=== PATIENT | male | born 1960 | race American Indian/Alaskan Native ===

== ENCOUNTER 2017-01-04 13:02 | Inpatient (IN) | payer MEDICARE, OTHER ==
[2017-01-04 13:06] VITALS: BMI 25.8
--- NOTE | 2017-01-04 15:05 | ED PDOC ---
HPI: General Adult Time Seen by Provider: 01/04/17 13:32 Chief Complaint (Nursing): Abnormal Skin Integrity Chief Complaint (Provider): found on ground, infestation History Per: Patient, EMS History/Exam Limitations: clinical condition Onset/Duration Of Symptoms: Unknown Current Symptoms Are (Timing): Still Present Recently: Hospitalized [place] [place] pt) Additional Complaint(s): 56yo male arrives EMS found on ground on street infested with maggots, covered in feces. Pt poor historian. C/o leg pains, ulcers and weakness. Required extensive decontamination in ED. History limited by need for decontamination on arrival. Prior charts reviewed briefly, recent ED visits for intoxication to . Past Medical History Reviewed: Historical Data, Nursing Documentation, Vital Signs Vital Signs: Last Vital Signs Temp 99.8 F H 01/04/17 13:36 Pulse 136 H 01/04/17 13:36 Resp 18 01/04/17 13:36 BP 138/80 01/04/17 13:36 Pulse Ox - Medical History PMH: Asthma, Back Problems, Depression, Fractures (spine fracture 2002), Gastritis, HTN, Hypercholesterolemia, Chronic Pain Denies: Chronic Kidney Disease - Surgical History Surgical History: Back Surgery - Family History Family History: States: Unknown Family Hx - Living Arrangements Living Arrangements: Other (homeless) - Social History Current smoker - smoking cessation education provided: Yes Alcohol: > 2 Drinks/Day - Immunization History Hx Tetanus Toxoid Vaccination: No Hx Influenza Vaccination: No Hx Pneumococcal Vaccination: No - Home Medications Home Medications: Ambulatory Orders Medication Instructions Recorded Unobtainable 09/14/16 - Allergies Allergies/Adverse Reactions: Allergies Allergy/AdvReac Type Severity Reaction Status Date / Time No Known Allergies Allergy Verified 12/21/16 21:12 Review of Systems Review Of Systems: ROS cannot be obtained secondary to pt's inabilty to answer questions. (poor historian) Physical Exam - Reviewed Nursing Documentation Reviewed: Yes Vital Signs Reviewed: Yes - Physical Exam Appears: Positive for: Non-toxic (poor hygiene) Head Exam: Positive for: ATRAUMATIC, NORMAL INSPECTION, NORMOCEPHALIC Skin: Positive for: Warm, Rash (extensive ulcerations to buttocks and lower extremities, maggots infested into ulcers on buttocks and legs; neg nikolskys sign. scrotum mild tenderness; +erythema and ulcerations to distal legs) Eye Exam: Positive for: EOMI, Normal appearance, PERRL ENT: Positive for: Normal ENT Inspection Neck: Positive for: Normal, Painless ROM Cardiovascular/Chest: Positive for: Bradycardia Respiratory: Negative for: Respiratory Distress Gastrointestinal/Abdominal: Positive for: Normal Exam, Bowel Sounds, Soft Male Genital Exam: Positive for: normal genitalia, scrotum tenderness (R), scrotum tenderness (L) Back: Positive for: Normal Inspection Extremity: Positive for: Swelling (LE edema), Other (acute on chronic appearing ulcers b/l LE; ) Neurologic/Psych: Positive for: Alert, Oriented, Gait (unable to assess). Negative for: Motor/Sensory Deficits Medical Decision Making Medical Decision Making: Decontamination initiated in ED. Wounds irrigated to remove maggots, debris. Sterile saline and betadine wash thereafter under pressure. Workup for sepsis initiated. Disposition - Clinical Impression Clinical Impression: Cellulitis and abscess of buttock, Maggot infestation, Ulcers of both lower legs - Patient ED Disposition Is Patient to be Admitted: Transfer of Care - Disposition Disposition: Transfer of Care Disposition Time: 15:09 Condition: GUARDED Patient Signed Over To: Christina Pedraza Handoff Comments: pending workup and dispo, likely admission. r/o sepsis
[2017-01-04] MEDS ORDERED: Sodium Chloride 0.9% 1,000 ML IV STA (15:10)
[2017-01-04 16:18] LABS: VENOUS BLOOD GAS BASE EXCESS 3.8 mmol/L (0.0-2.0); VENOUS BLOOD GAS PCO2 46 mmHg (40-60); VENOUS BLOOD PH 7.41 (7.32-7.43)
[2017-01-04] MEDS ORDERED: Piperacillin/Tazobact 4.5 GM in Sodium Chloride 0.9% 100 ML IVPB STA (16:19)
--- NOTE | 2017-01-04 16:19 | ED PDOC ---
- Laboratory Results Result Diagrams: 01/09/17 05:35 01/09/17 05:35 Medical Decision Making Medical Decision Making: Patient signed over to me pending work up and disposition Scribe Attestation: Documented by Yeimi Barksdale acting as a scribe for Christina Pedraza MD MD Scribe Attestation: All medical record entries made by the Scribe were at my direction and personally dictated by me. I have reviewed the chart and agree that the record accurately reflects my personal performance of the history, physical exam, medical decision making, and the department course for this patient. I have also personally directed, reviewed, and agree with the discharge instructions and disposition. Disposition - Clinical Impression Clinical Impression: Cellulitis and abscess of buttock, Maggot infestation, Ulcers of both lower legs - POA Present On Arrival: Pressure Ulcer - Disposition Disposition: Admitted as In-Patient Disposition Time: 18:01 Condition: GUARDED
[2017-01-04 16:45] LABS: PARTIAL THROMBOPLASTIN TIME 33.1 SECONDS (23.3-32.5)
[2017-01-04 16:49] LABS: ALB/GLOB RATIO 0.8 (1.0-2.1); ALCOHOL SERUM 67 mg/dl (0-10); ALKALINE PHOSPHATASE 67 U/L (38-126); ALT/SGPT 45 U/L (21-72); AST/SGOT 90 U/L (17-59); BILIRUBIN,TOTAL 1.9 mg/dl (0.2-1.3); BLOOD UREA NITROGEN 14 mg/dl (9-20); CALCIUM 9.4 mg/dL (8.4-10.2); CARBON DIOXIDE 26 mmol/L (22-30); CHLORIDE 88 mmol/L (98-107); GFR AFRICAN-AMERICAN > 60; GLUCOSE,RANDOM 112 mg/dL (75-110); SODIUM 129 mmol/l (132-148); TOTAL PROTEIN 9.3 G/DL (6.3-8.2)
[2017-01-04 16:54] LABS: BASO % 0.3 % (0.0-2.0); EOS % 0.3 % (0.0-4.0); HEMATOCRIT 37.5 % (35.0-51.0); LYMPH # 0.9 K/uL (1.0-4.3); LYMPH % 7.6 % (20.0-40.0); MEAN CELL VOLUME 89.8 fl (80.0-94.0); MEAN CORPUSCULAR HGB CONC 32.2 g/dL (33.0-37.0); MEAN PLATELET VOLUME 7.2 fl (7.2-11.7); MONO # 1.5 K/uL (0.0-0.8); MONO % 13.4 % (0.0-10.0); NEUT % 78.4 % (50.0-75.0); NRBC % 0.1 % (0.0-0.0); PLATELET COUNT 258 K/uL (130-400); RED CELL DISTRIBUTION WIDTH 16.2 % (11.5-14.5); WHITE BLOOD COUNT 11.4 K/uL (4.8-10.8)
[2017-01-04 17:00] LABS: POTASSIUM 5.1 MMOL/L (3.6-5.0)
[2017-01-04] MEDS ORDERED: Hydrogen Peroxide 3% Soln (480ml) TP ONE (17:07)
--- NOTE | 2017-01-04 17:50 | CP.PCM.CON ---
History of Present Illness - History of Present Illness History of Present Illness: PODIATRY CONSULT NOTE 56 year old male patient seen in [facility] concerning bilateral lower extremity cellulits and maggot infestation. Pt is homeless and was brought in. Pt reports he was seen at [facility] 2 week prior concerning this same issue. Pt reports he was seen in urgent care setting and had received "multiple medications", pt did not follow up with any providers. Pt reports worsening symptoms and extent of cellulitis which initially was localized to left lower leg. Pt states he has had recurrent bouts of cellulitis over the past year. Pt reports pain he currently grades a 5/10 bilaterally, to area of erythema. Pt reports feeling of feverishness and is visible shivering and reports he has chills. Pt denies recent n/v/cp/sob. PMD: none PMH: Poor historian PSH: Poor historian All: NKDA Family Hx: Spotty Social Hx: Homeless for <1 week allegedly, sister in [place], unemployed. Admits to chronic alcohol daily ue of 1 [address] Denies [address] drug use, or tobacco use. Past Patient History - Infectious Disease Hx of Infectious Diseases: None - Past Medical History & Family History Past Medical History?: Yes - Past Social History Alcohol: > 2 Drinks/Day - CARDIAC Hx Hypercholesterolemia: Yes Hx Hypertension: Yes - PULMONARY Hx Asthma: Yes - HEENT Hx HEENT Problems: No - RENAL Hx Chronic Kidney Disease: No - INTEGUMENTARY Hx Dermatological Problems: Yes Other/Comment: cellulitis b/l legs. wound to lt foot - MUSCULOSKELETAL/RHEUMATOLOGICAL Hx Fractures: Yes (spine fracture 2002) - GASTROINTESTINAL Hx Gastritis: Yes - PSYCHIATRIC Hx Depression: Yes - SURGICAL HISTORY Hx Surgeries: Yes - ANESTHESIA Hx Anesthesia: Yes Hx Anesthesia Reactions: No Hx Malignant Hyperthermia: No Meds Allergies/Adverse Reactions: Allergies Allergy/AdvReac Type Severity Reaction Status Date / Time No Known Allergies Allergy Verified 12/21/16 21:12 - Medications Medications: Current Medications Vancomycin HCl 1 gm/ Sodium (Chloride) 250 mls @ 166.667 mls/hr IVPB STAT STA Stop: 01/04/17 17:48 Physical Exam - Constitutional Appears: Toxic, No Acute Distress, Unkempt - Head Exam Head Exam: ATRAUMATIC, NORMOCEPHALIC - Extremities Exam Additional comments: Lower extremity exam: VASC- DP/PT pulses fully palpable, graded 2/4, capillary refill < 5 sec to digits x 5, moderate non-pitting edema noted extending circumferentialy from level digits to inferior of tibial tuberosity bilaterally. Temperature runs warm throughout bilateral feet and legs. Moderate diffuse non-blanchable erythema. NEURO-Pedal sensation is grossly intact DERM- Interdigtial macerations noted to all interspaces. Plantar digital skin and skin of weightbearing areas is blanched and mildly macerated bilaterally. No fluctuance noted bilaterally. Right- Lateral foot superficial ulceration measuring 9 x 1cm with 100% granular base, absent hyperkeratotic margins, no undermining, no active drainage. Arianne-wound skin s fully epithelialized though not fully pigmented. Posterior leg superficial ulceration measuring 2.2 x 3.4cm with 100% granular base, absent hyperkeratotic margins, no undermining, no active drainage. Arianne-wound skin s fully epithelialized though not fully pigmented. Left - Posterior Leg superficial ulceration measuring 7 x 12 cm with 100% granular base, absent hyperkeratotic margins, no undermining, no active drainage. Arianne-wound skin s fully epithelialized though not fully pigmented. ORTHO- Mild tenderness noted to distal posterior and lateral legs today. Pedal muscle strength of left leg 4 major pedal muscle groups is 5/5. Right leg demonstrates 4/5 strength for anterior, lateral, and medial muscle groups, with decreased muscle strength exhibited from hip flexor, extensors and abductors - Neurological Exam Neurological exam: Alert, Oriented x3 - Psychiatric Exam Psychiatric exam: Normal Affect, Normal Mood Results - Vital Signs Recent Vital Signs: Last Vital Signs Temp 99.9 F H 01/04/17 16:55 Pulse 130 H 01/04/17 16:55 Resp 18 01/04/17 16:55 BP 118/71 01/04/17 16:55 Pulse Ox 98 01/04/17 16:55 - Labs Result Diagrams: 01/04/17 16:25 01/04/17 16:25 Labs: Laboratory Results - last 24 hr 01/04/17 01/04/17 01/04/17 16:10 16:25 16:25 WBC 11.4 H D RBC 4.18 L Hgb 12.1 Hct 37.5 MCV 89.8 MCH 29.0 MCHC 32.2 L RDW 16.2 H Plt Count 258 MPV 7.2 Neut % (Auto) 78.4 H Lymph % (Auto) 7.6 L Milam % (Auto) 13.4 H Eos % (Auto) 0.3 Baso % (Auto) 0.3 Neut # 9.0 H Lymph # 0.9 L Milam # 1.5 H Eos # 0.0 Baso # 0.0 PT INR APTT pO2 22 L VBG pH 7.41 VBG pCO2 46 VBG HCO3 26.3 VBG Total CO2 30.6 H VBG O2 Sat (Calc) 32.8 L VBG Base Excess 3.8 H VBG Potassium 4.3 Sodium 127.0 L 129 L Chloride 90.0 L 88 L Glucose 100 Lactate 4.6 H* FiO2 21.0 Crit Value Called To Dr leroy medellin Crit Value Called By Rt Crit Value Read Back Y Blood Gas Notified Time 1617 Potassium 5.1 H Carbon Dioxide 26 Anion Gap 20 BUN 14 Creatinine 0.6 L Est GFR ( Amer) > 60 Est GFR (Non-Af Amer) > 60 Random Glucose 112 H Calcium 9.4 Total Bilirubin 1.9 H AST 90 H D ALT 45 Alkaline Phosphatase 67 Total Creatine Kinase 1337 H Troponin I < 0.0120 Total Protein 9.3 H Albumin 4.1 Globulin 5.3 H Albumin/Globulin Ratio 0.8 L Venous Blood Potassium 4.3 Alcohol, Quantitative 67 H 01/04/17 16:25 WBC RBC Hgb Hct MCV MCH MCHC RDW Plt Count MPV Neut % (Auto) Lymph % (Auto) Milam % (Auto) Eos % (Auto) Baso % (Auto) Neut # Lymph # Milam # Eos # Baso # PT 12.0 H INR 1.15 H APTT 33.1 H pO2 VBG pH VBG pCO2 VBG HCO3 VBG Total CO2 VBG O2 Sat (Calc) VBG Base Excess VBG Potassium Sodium Chloride Glucose Lactate FiO2 Crit Value Called To Crit Value Called By Crit Value Read Back Blood Gas Notified Time Potassium Carbon Dioxide Anion Gap BUN Creatinine Est GFR ( Amer) Est GFR (Non-Af Amer) Random Glucose Calcium Total Bilirubin AST ALT Alkaline Phosphatase Total Creatine Kinase Troponin I Total Protein Albumin Globulin Albumin/Globulin Ratio Venous Blood Potassium Alcohol, Quantitative Assessment & Plan - Assessment and Plan (Free Text) Assessment: 56 year old male with bilateral foot and leg cellulits, multiple bilateral Rico Grade 1 Ulcerations,w/ maggot colonization/infestation. Plan: Pt evaluated & treated. Charts labs and vitals reviewed. WBC=, afebrile Discussed with attending Dr. West. -Bilateral leg wound cultures taken of lower extremity. -ESR ordered -Below knee x-ray films ordered. -Venous duplex results reviewed: Negative for DVT -Cleansed lower extremity with hydrogen peroxide & sterile saline, dressed with Xeroform gauze, abd, & dsd. Pt to be admitted. Podiatry will follow while inhouse. - Date & Time Date: 01/04/17 Time: 05:20
--- NOTE | 2017-01-04 18:11 | US ---
PROCEDURE: Bilateral lower extremity venous duplex Doppler. HISTORY: BLE edema COMPARISON: None available. TECHNIQUE: Bilateral common femoral, superficial femoral, popliteal and posterior tibial veins were evaluated. Flow was assessed with color Doppler, compressibility, assessment of phasic flow and augmentation response. FINDINGS: COMMON FEMORAL VEIN: Right CFV: Unremarkable. Left CFV: Unremarkable. SUPERFICIAL FEMORAL VEIN: Right SFV: Unremarkable. Left SFV: Unremarkable. POPLITEAL VEIN: Right Popliteal: Unremarkable. Left Popliteal: Unremarkable. POSTERIOR TIBIAL VEIN: Right PTV: Unremarkable. Left PTV: Unremarkable. OTHER FINDINGS: None. IMPRESSION: No evidence of deep venous thrombosis.
[2017-01-04 18:22] LABS: RBC URINE 3 /hpf (0-3); URINE BACTERIA RARE (<OCC); URINE BILIRUBIN NEGATIVE (NEGATIVE); URINE BLOOD MODERATE (NEGATIVE); URINE COLOR AMBER (YELLOW); URINE GLUCOSE (UA) NEG (Normal); URINE KETONE TRACE mg/dL (NEGATIVE); URINE LEUKOCYTE ESTERASE NEG Leu/uL (Negative); URINE PROTEIN 100 mg/dL (NEGATIVE); WBC URINE 6 /hpf (0-5)
--- NOTE | 2017-01-04 18:22 | RAD ---
HISTORY: SOB COMPARISON: None available TECHNIQUE: Chest, one view. FINDINGS: LUNGS: Right lower lobe opacity compatible with pleural effusion and associated consolidation. No definite pneumothorax. Please note that chest x-ray has limited sensitivity for the detection of pulmonary masses. CARDIOVASCULAR: Heart size appears within normal limits. Ectatic aorta. OSSEOUS STRUCTURES: No acute osseous abnormality is detected. VISUALIZED UPPER ABDOMEN: Unremarkable. OTHER FINDINGS: None. IMPRESSION: Right lower lobe opacity compatible with small pleural effusion and associated consolidation.
[2017-01-04] MEDS ORDERED: Povidone Iodine Topical 10% Sol ONE (19:17)
[2017-01-04 19:47] LABS: VENOUS BLOOD GAS BASE EXCESS 2.1 mmol/L (0.0-2.0); VENOUS BLOOD GAS PCO2 35 mmHg (40-60); VENOUS BLOOD PH 7.47 (7.32-7.43)
[2017-01-04 20:17] LABS: NEUTROPHIL 76 % (42-75); TOTAL CELLS COUNTED 100
[2017-01-04 20:18] LABS: LARGE PLATELETS PRESENT
[2017-01-04 20:32] LABS: ALKALINE PHOSPHATASE 55 U/L (38-126); ALT/SGPT 45 U/L (21-72); AST/SGOT 72 U/L (17-59); BILIRUBIN,TOTAL 1.7 mg/dl (0.2-1.3); BLOOD UREA NITROGEN 13 mg/dl (9-20); CALCIUM 8.5 mg/dL (8.4-10.2); CARBON DIOXIDE 25 mmol/L (22-30); CHLORIDE 93 mmol/L (98-107); GFR AFRICAN-AMERICAN > 60; GLUCOSE,RANDOM 110 mg/dL (75-110); SODIUM 130 mmol/l (132-148); TOTAL PROTEIN 7.2 G/DL (6.3-8.2)
[2017-01-04 20:42] LABS: ALB/GLOB RATIO 0.8 (1.0-2.1)
[2017-01-04] MEDS ORDERED: Sodium Chloride 0.9% 1,000 ML IV SCH (23:15)
[2017-01-05] MEDS: Sodium Chloride 0.9% 1,000 ML IV SCH ×3 (00:38→15:08)
[2017-01-05] MEDS: Piperacillin/Tazobact 3.375 GM in Sodium Chloride 0.9% 100 ML IVPB SCH ×5 (00:38→22:23)
[2017-01-05 07:24] LABS: BASO % 0.4 % (0.0-2.0); EOS % 0.3 % (0.0-4.0); HEMATOCRIT 29.4 % (35.0-51.0); LYMPH # 0.7 K/uL (1.0-4.3); LYMPH % 8.2 % (20.0-40.0); MEAN CELL VOLUME 89.7 fl (80.0-94.0); MEAN CORPUSCULAR HEMOGLOBIN 29.2 pg (27.0-31.0); MEAN CORPUSCULAR HGB CONC 32.5 g/dL (33.0-37.0); MEAN PLATELET VOLUME 6.8 fl (7.2-11.7); MONO # 1.4 K/uL (0.0-0.8); MONO % 17.1 % (0.0-10.0); PLATELET COUNT 242 K/uL (130-400); RED CELL DISTRIBUTION WIDTH 16.4 % (11.5-14.5); WHITE BLOOD COUNT 8.2 K/uL (4.8-10.8)
--- NOTE | 2017-01-05 07:25 | CP.PCM.HP ---
History of Present Illness - History of Present Illness History of Present Illness: dpt admitted fo rinfected leg and sacral wounds. pt is homeless nad found to have maggots in wounds. pt has been doconned but insects remain. pt states has not been taking care of himself and when he gets up set he drinks. all bw noted incl elevated lactate. lactate, hr and temp came down w/ tylenol and fluids. consults appriciated. bw and imaign gnoted. Present on Admission - Present on Admission Any Indicators Present on Admission: No Review of Systems - Integumentary Integumentary: As Per HPI, Skin Ulcer Past Patient History - Infectious Disease Hx of Infectious Diseases: None - Past Medical History & Family History Past Medical History?: Yes - Past Social History Alcohol: > 2 Drinks/Day - CARDIAC Hx Hypercholesterolemia: Yes Hx Hypertension: Yes - PULMONARY Hx Asthma: Yes - HEENT Hx HEENT Problems: No - RENAL Hx Chronic Kidney Disease: No - INTEGUMENTARY Hx Dermatological Problems: Yes - MUSCULOSKELETAL/RHEUMATOLOGICAL Hx Fractures: Yes (spine fracture 2002) - GASTROINTESTINAL Hx Gastritis: Yes - PSYCHIATRIC Hx Depression: Yes - SURGICAL HISTORY Hx Surgeries: Yes - ANESTHESIA Hx Anesthesia: Yes Hx Anesthesia Reactions: No Hx Malignant Hyperthermia: No Meds Allergies/Adverse Reactions: Allergies Allergy/AdvReac Type Severity Reaction Status Date / Time No Known Allergies Allergy Verified 12/21/16 21:12 Physical Exam - Constitutional Appears: Well, Non-toxic, No Acute Distress - Head Exam Head Exam: ATRAUMATIC, NORMAL INSPECTION, NORMOCEPHALIC - Eye Exam Eye Exam: EOMI, Normal appearance, PERRL Pupil Exam: NORMAL ACCOMODATION, PERRL - ENT Exam ENT Exam: Mucous Membranes Moist, Normal Exam - Neck Exam Neck exam: Positive for: Normal Inspection - Respiratory Exam Respiratory Exam: Clear to Auscultation Bilateral, NORMAL BREATHING PATTERN - Cardiovascular Exam Cardiovascular Exam: REGULAR RHYTHM, RRR, +S1, +S2 - GI/Abdominal Exam GI & Abdominal Exam: Normal Bowel Sounds, Soft. absent: Tenderness - Extremities Exam Extremities exam: Positive for: full ROM, normal capillary refill, normal inspection, pedal pulses present - Back Exam Back exam: NORMAL INSPECTION - Neurological Exam Neurological exam: Alert, CN II-XII Intact, Normal Gait, Oriented x3, Reflexes Normal - Psychiatric Exam Psychiatric exam: Normal Affect, Normal Mood - Skin Skin Exam: Dry, Intact, Normal Color, Warm Additional comments: wounds to ble and sacrum. podiatry and wound nurse on case Results - Vital Signs Recent Vital Signs: Last Vital Signs Temp 99.6 F 01/05/17 05:39 Pulse 107 H 01/05/17 05:39 Resp 18 01/05/17 05:39 BP 135/78 01/05/17 05:39 Pulse Ox 100 01/05/17 05:39 - Labs Result Diagrams: 01/05/17 06:50 01/05/17 06:50 Labs: Laboratory Results - last 24 hr 01/04/17 01/04/17 01/04/17 19:40 19:42 20:00 ESR 100 H pO2 43 VBG pH 7.47 H VBG pCO2 35 L VBG HCO3 26.2 VBG Total CO2 26.6 VBG O2 Sat (Calc) 83.8 H VBG Base Excess 2.1 H VBG Potassium 9.5 H* Sodium 125.0 L 130 L Chloride 98.0 93 L Glucose 92 Lactate 1.8 FiO2 21.0 Crit Value Called To Dr leroy medellin Crit Value Called By Rt Crit Value Read Back Y Blood Gas Notified Time 1944 Potassium 4.0 Carbon Dioxide 25 Anion Gap 16 BUN 13 Creatinine 0.7 L Est GFR ( Amer) > 60 Est GFR (Non-Af Amer) > 60 Random Glucose 110 Calcium 8.5 Total Bilirubin 1.7 H AST 72 H ALT 45 Alkaline Phosphatase 55 Total Protein 7.2 Albumin 3.3 L Globulin 3.9 Albumin/Globulin Ratio 0.8 L Venous Blood Potassium 9.5 H* Decision To Admit - Pt Status Changed To: Hospital Disposition Of: Inpatient - Admit Certification Admit to Inpatient:: After my assessment, the patient will require hospitalization for at least two midnights. This is because of the severity of symptoms shown, intensity of services needed, and/or the medical risk in this patient being treated as an outpatient. - . Bed Request Type: Telemetry Admitting Physician: Chandrakant Snyder
[2017-01-05 07:35] LABS: ALB/GLOB RATIO 0.8 (1.0-2.1); ALKALINE PHOSPHATASE 52 U/L (38-126); ALT/SGPT 42 U/L (21-72); AST/SGOT 78 U/L (17-59); BLOOD UREA NITROGEN 11 mg/dl (9-20); CALCIUM 8.3 mg/dL (8.4-10.2); CARBON DIOXIDE 30 mmol/L (22-30); CHLORIDE 94 mmol/L (98-107); GFR AFRICAN-AMERICAN > 60; GLUCOSE,RANDOM 97 mg/dL (75-110); POTASSIUM 3.7 MMOL/L (3.6-5.0); SODIUM 132 mmol/l (132-148); TOTAL PROTEIN 6.6 G/DL (6.3-8.2)
--- NOTE | 2017-01-05 08:46 | CARD ---
APPROVED REPORT EKG Measurement Heart [id number] <Conclusion> Sinus tachycardia Otherwise normal ECG
[2017-01-05 09:10] LABS: NEUTROPHIL 74 % (42-75); TOTAL CELLS COUNTED 100
[2017-01-05 09:12] LABS: LARGE PLATELETS PRESENT
[2017-01-05] MEDS ORDERED: Hydrogen Peroxide 3% Soln (480ml) TP ONE (10:53)
--- NOTE | 2017-01-05 10:55 | RAD ---
PROCEDURE: Radiographs of the bilateral Tibiae and Fibulae. HISTORY: Ulcerations COMPARISON: None available. TECHNIQUE: Frontal and lateral views obtained. FINDINGS: BONES: RIGHT : Osseous demineralization. No acute displaced fracture. LEFT : Osseous demineralization. No acute displaced fracture. 13 mm peripherally sclerotic lesion within the mid fibula. JOINT SPACES: RIGHT : No dislocation. LEFT : No dislocation. SOFT TISSUES: RIGHT : Soft tissue edema. No evidence of radiopaque foreign body. Vascular calcifications. LEFT : Soft tissue edema. No evidence of radiopaque foreign body. Vascular calcifications. OTHER FINDINGS: None. IMPRESSION: Bilateral soft tissue edema. No acute displaced fracture or dislocation evident. 13 mm peripherally sclerotic lucent lesion within the mid left tibia fibula.
[2017-01-05] MEDS: Enoxaparin 40 mg Syringe SC SCH (11:09)
--- NOTE | 2017-01-05 12:05 | RAD ---
Bilateral ankle radiographs Indication: Ulcerations Comparison: None available Findings: Right ankle: Osseous demineralization limits evaluation for acute fracture lines. No acute displaced fracture or dislocation identified. Soft tissue swelling. Vascular calcifications. No evidence of radiopaque foreign body. Left ankle: Osseous demineralization limits evaluation for acute fracture lines. No acute displaced fracture or dislocation identified. Soft tissue swelling. Vascular calcifications. No evidence of radiopaque foreign body. Impression: Bilateral osseous demineralization. Soft tissue swelling.
--- NOTE | 2017-01-05 12:14 | RAD ---
Bilateral feet radiographs Indication: Ulcerations Comparison: None available Findings: Right foot: Osseous demineralization limits evaluation for acute fracture lines. No acute displaced fracture or dislocation identified. Soft tissue swelling. Vascular calcifications. No evidence of radiopaque foreign body. Left foot: Osseous demineralization limits evaluation for acute fracture lines. No acute displaced fracture or dislocation identified. Soft tissue swelling. Vascular calcifications. No evidence of radiopaque foreign body. Impression: Bilateral osseous demineralization. Soft tissue swelling.
[2017-01-05] MEDS: Dakin's Topical 0.25%-Half Strength (480 ml) TOP SCH (12:15)
--- NOTE | 2017-01-05 13:36 | CP.PCM.CON ---
History of Present Illness - History of Present Illness History of Present Illness: 56 year old male patient seen in [facility] concerning bilateral lower extremity cellulits and maggot infestation. Pt is homeless and seen at [facility] 2 week prior concerning this same issue. PMD: none PMH: Poor historian PSH: Poor historian All: NKDA Family Hx: Spotty Social Hx: Homeless for <1 week allegedly, sister in [place], unemployed. Admits to chronic alcohol daily ue of 1 6 pack of beer[address] Denies street drug use, or tobacco use. Review of Systems - Constitutional Constitutional: As Per HPI, Malaise - EENT Eyes: absent: As Per HPI, Blind Spots, Blurred Vision, Change in Vision, Decreased Night Vision, Diplopia, Discharge, Dry Eye, Exophthalmos, Floaters, Irritation, Itchy Eyes, Loss of Peripheral Vision, Pain, Photophobia, Requires Corrective Lenses, Sees Flashes, Spots in Vision, Tunnel Vision, Other Visual Disturbances, Loss of Vision, Other Ears: absent: As Per HPI, Decreased Hearing, Ear Discharge, Ear Pain, Tinnitus, Abnormal Hearing, Disequilibrium, Dizziness, Other Nose/Mouth/Throat: absent: As Per HPI, Epistaxis, Nasal Congestion, Nasal Discharge, Nasal Obstruction, Nasal Trauma, Nose Pain, Post Nasal Drip, Sinus Pain, Sinus Pressure, Bleeding Gums, Change in Voice, Dental Pain, Dry Mouth, Dysphagia, Halitosis, Hoarsness, Lip Swelling, Mouth Lesions, Mouth Pain, Odynophagia, Sore Throat, Throat Swelling, Tongue Swelling, Facial Pain, Neck Pain, Neck Mass, Other - Cardiovascular Cardiovascular: absent: As Per HPI, Acrocyanosis, Chest Pain, Chest Pain at Rest , Chest Pain with Activity, Claudication, Diaphoresis, Dyspnea, Dyspnea on Exertion, Edema, Irregular Heart Rhythm, Pain Radiating to Arm/Neck/Jaw, Leg Edema, Leg Ulcers, Lightheadedness, Orthopnea, Palpitations, Paroxysmal Nocturnal Dyspnea, Pedal Edema, Radiating Pain, Rapid Heart Rate, Slow Heart Rate, Syncope, Other - Respiratory Respiratory: absent: As Per HPI, Cough, Dyspnea, Hemoptysis, Dyspnea on Exertion , Wheezing, Snoring, Stridor, Pain on Inspiration, Chest Congestion, Excessive Mucous Production, Change in Mucous Color, Pain with Coughing, Other - Gastrointestinal Gastrointestinal: absent: As Per HPI, Abdominal Pain, Belching, Bloating, Change in Bowel Habits, Change in Stool Character, Coffee Ground Emesis, Constipation, Cramping, Diarrhea, Dyspepsia, Dysphagia, Early Satiety, Excessive Flatus, Fecal Incontinence, Heartburn, Hematemesis, Hematochezia, Loose Stools, Melena, Nausea, Odynophagia, Temesmus, Vomiting, Other - Genitourinary Genitourinary: absent: As Per HPI, Change in Urinary Stream, Difficulty Urinating, Dysuria, Flank Pain, Hematuria, Pyuria, Nocturia, Urinary Incontinence, Urinary Frequency, Urinary Hesitance, Urinary Urgency, Voiding Freq/Small Amts, Freq UTI, Hx Renal/Bladder Calculi, Hx /Renal Surgery, Bladder Distension, Other - Musculoskeletal Musculoskeletal: As Per HPI - Integumentary Integumentary: As Per HPI - Neurological Neurological: absent: As Per HPI, Abnormal Gait, Abnormal Hearing, Abnormal Movements, Abnormal Speech, Behavioral Changes, Burning Sensations, Confusion, Convulsions, Disequilibrium, Dizziness, Numbness, Focal Weakness, Frequent Falls , Headaches, Lack of Coordination, Loss of Vision, Memory Loss, Paresthesias, Radicular Pain, Restless Legs, Sensory Deficit, Syncope, Tingling, Tremor, Vertigo, Weakness, Other Visual Disturbances, Other - Psychiatric Psychiatric: absent: As Per HPI, Abnormal Sleep Pattern, Anhedonia, Anxiety, Auditory Hallucinations, Behavioral Changes, Change in Appetite, Change in Libido, Confusion, Depression, Difficulty Concentrating, Hallucinations, Homicidal Ideation, Hopelessness, Irritability, Memory Loss, Mood Swings, Panic Attacks, Paranoia, Suicidal Ideation, Visual Hallucinations, Tactile Hallucinations, Other - Endocrine Endocrine: absent: As Per HPI, Change in Body Appearance, Change in Libido, Cold Intolorance, Deepening of Voice, Excessive Sweating, Fatigue, Flushing, Heat Intolorance, Increase in Ring/Shoe/Hat Size, Palpitations, Polydipsia, Polyphagia, Polyuria, Other - Hematologic/Lymphatic Hematologic: absent: As Per HPI, Easy Bleeding, Easy Bruising, Lymphadenopathy, Other Past Patient History - Infectious Disease Hx of Infectious Diseases: None - Past Medical History & Family History Past Medical History?: Yes - Past Social History Alcohol: > 2 Drinks/Day - CARDIAC Hx Hypercholesterolemia: Yes Hx Hypertension: Yes - PULMONARY Hx Asthma: Yes - HEENT Hx HEENT Problems: No - RENAL Hx Chronic Kidney Disease: No - INTEGUMENTARY Hx Dermatological Problems: Yes - MUSCULOSKELETAL/RHEUMATOLOGICAL Hx Fractures: Yes (spine fracture 2002) - GASTROINTESTINAL Hx Gastritis: Yes - PSYCHIATRIC Hx Depression: Yes - SURGICAL HISTORY Hx Surgeries: Yes - ANESTHESIA Hx Anesthesia: Yes Hx Anesthesia Reactions: No Hx Malignant Hyperthermia: No Meds Allergies/Adverse Reactions: Allergies Allergy/AdvReac Type Severity Reaction Status Date / Time No Known Allergies Allergy Verified 12/21/16 21:12 - Medications Medications: Current Medications Acetaminophen (Tylenol 325mg Tab) 650 mg PO Q4 PRN PRN Reason: Fever >100.4 F Enoxaparin Sodium (Lovenox) 40 mg SC DAILY JANNETH PRN Reason: Protocol Last Admin: 01/05/17 11:09 Dose: 40 mg Vancomycin HCl 1 gm/ Sodium (Chloride) 250 mls @ 166.667 mls/hr IVPB Q12 JANNETH Last Admin: 01/05/17 09:32 Dose: 166.667 mls/hr Piperacillin Sod/Tazobactam (Sod 3.375 gm/ Sodium Chloride) 100 mls @ 100 mls/ hr IVPB Q6 JANNETH Last Admin: 01/05/17 09:32 Dose: 100 mls/hr Sodium Chloride (Sodium Chloride 0.9%) 1,000 mls @ 150 mls/hr IV .Q6H40M [facility] Stop: 01/05/17 18:32 Last Admin: 01/05/17 09:31 Dose: 150 mls/hr Ketorolac Tromethamine (Toradol) 30 mg IVP Q6 PRN PRN Reason: Pain, moderate (4-7) Last Admin: 01/05/17 11:09 Dose: 30 mg Sodium Hypochlorite (Dakins Solution 0.25%) 0 ml TOP DAILY [facility] Physical Exam - Constitutional Appears: Non-toxic, Chronically Ill - Head Exam Head Exam: NORMOCEPHALIC - Eye Exam Eye Exam: PERRL. absent: Scleral icterus - ENT Exam ENT Exam: Mucous Membranes Dry, Normal External Ear Exam - Neck Exam Neck exam: Negative for: Lymphadenopathy, Thyromegaly - Respiratory Exam Respiratory Exam: Decreased Breath Sounds, Clear to Auscultation Bilateral - Cardiovascular Exam Cardiovascular Exam: REGULAR RHYTHM, +S1, +S2 - GI/Abdominal Exam GI & Abdominal Exam: Diminished Bowel Sounds, Soft. absent: Guarding, Rebound, Rigid, Tenderness - Rectal Exam Rectal Exam: Deferred - Exam Exam: NORMAL INSPECTION - Extremities Exam Extremities exam: Positive for: pedal edema. Negative for: calf tenderness Additional comments: Lower extremity exam: VASC- DP/PT pulses fully palpable, graded 2/4, capillary refill < 5 sec to digits x 5, moderate non-pitting edema noted extending circumferentialy from level digits to inferior of tibial tuberosity bilaterally. Temperature runs warm throughout bilateral feet and legs. Moderate diffuse non-blanchable erythema. NEURO-Pedal sensation is grossly intact DERM- Interdigtial macerations noted to all interspaces. Plantar digital skin and skin of weightbearing areas is blanched and mildly macerated bilaterally. No fluctuance noted bilaterally. Right- Lateral foot superficial ulceration measuring 9 x 1cm with 100% granular base, absent hyperkeratotic margins, no undermining, no active drainage. Arianne-wound skin s fully epithelialized though not fully pigmented. Posterior leg superficial ulceration measuring 2.2 x 3.4cm with 100% granular base, absent hyperkeratotic margins, no undermining, no active drainage. Arianne-wound skin s fully epithelialized though not fully pigmented. Left - Posterior Leg superficial ulceration measuring 7 x 12 cm with 100% granular base, absent hyperkeratotic margins, no undermining, no active drainage. Arianne-wound skin s fully epithelialized though not fully pigmented. ORTHO- Mild tenderness noted to distal posterior and lateral legs today. Pedal muscle strength of left leg 4 major pedal muscle groups is 5/5. Right leg demonstrates 4/5 strength for anterior, lateral, and medial muscle groups, with decreased muscle strength exhibited from hip flexor, extensors and abductors - Back Exam Back exam: absent: CVA tenderness (L), CVA tenderness (R), paraspinal tenderness - Neurological Exam Neurological exam: Alert, CN II-XII Intact, Oriented x3, Reflexes Normal - Psychiatric Exam Psychiatric exam: Normal Mood - Skin Additional comments: Lower extremity exam: VASC- DP/PT pulses fully palpable, graded 2/4, capillary refill < 5 sec to digits x 5, moderate non-pitting edema noted extending circumferentialy from level digits to inferior of tibial tuberosity bilaterally. Temperature runs warm throughout bilateral feet and legs. Moderate diffuse non-blanchable erythema. NEURO-Pedal sensation is grossly intact DERM- Interdigtial macerations noted to all interspaces. Plantar digital skin and skin of weightbearing areas is blanched and mildly macerated bilaterally. No fluctuance noted bilaterally. Right- Lateral foot superficial ulceration measuring 9 x 1cm with 100% granular base, absent hyperkeratotic margins, no undermining, no active drainage. Arianne-wound skin s fully epithelialized though not fully pigmented. Posterior leg superficial ulceration measuring 2.2 x 3.4cm with 100% granular base, absent hyperkeratotic margins, no undermining, no active drainage. Arianne-wound skin s fully epithelialized though not fully pigmented. Left - Posterior Leg superficial ulceration measuring 7 x 12 cm with 100% granular base, absent hyperkeratotic margins, no undermining, no active drainage. Arianne-wound skin s fully epithelialized though not fully pigmented. ORTHO- Mild tenderness noted to distal posterior and lateral legs today. Pedal muscle strength of left leg 4 major pedal muscle groups is 5/5. Right leg demonstrates 4/5 strength for anterior, lateral, and medial muscle groups, with decreased muscle strength exhibited from hip flexor, extensors and abductors Results - Vital Signs Recent Vital Signs: Last Vital Signs Temp 98.6 F 01/05/17 12:43 Pulse 105 H 01/05/17 12:43 Resp 18 01/05/17 12:43 BP 126/72 01/05/17 12:43 Pulse Ox 96 01/05/17 12:43 - Labs Result Diagrams: 01/05/17 06:50 01/05/17 06:50 Labs: Laboratory Results - last 24 hr 01/04/17 01/04/17 01/04/17 19:40 19:42 20:00 WBC RBC Hgb Hct MCV MCH MCHC RDW Plt Count MPV Neut % (Auto) Lymph % (Auto) Randolph % (Auto) Eos % (Auto) Baso % (Auto) Neut # Lymph # Randolph # Eos # Baso # Neutrophils % (Manual) Band Neutrophils % Lymphocytes % (Manual) Monocytes % (Manual) Platelet Estimate Large Platelets Hypochromasia (manual) Poikilocytosis (manual Anisocytosis (manual) Ovalocytes ESR 100 H pO2 43 VBG pH 7.47 H VBG pCO2 35 L VBG HCO3 26.2 VBG Total CO2 26.6 VBG O2 Sat (Calc) 83.8 H VBG Base Excess 2.1 H VBG Potassium 9.5 H* Sodium 125.0 L 130 L Chloride 98.0 93 L Glucose 92 Lactate 1.8 FiO2 21.0 Crit Value Called To Dr leroy medellin Crit Value Called By Rt Crit Value Read Back Y Blood Gas Notified Time 1944 Potassium 4.0 Carbon Dioxide 25 Anion Gap 16 BUN 13 Creatinine 0.7 L Est GFR ( Amer) > 60 Est GFR (Non-Af Amer) > 60 Random Glucose 110 Calcium 8.5 Total Bilirubin 1.7 H AST 72 H ALT 45 Alkaline Phosphatase 55 Total Protein 7.2 Albumin 3.3 L Globulin 3.9 Albumin/Globulin Ratio 0.8 L Venous Blood Potassium 9.5 H* 01/05/17 01/05/17 06:50 06:50 WBC 8.2 RBC 3.28 L Hgb 9.6 L D Hct 29.4 L MCV 89.7 MCH 29.2 MCHC 32.5 L RDW 16.4 H Plt Count 242 MPV 6.8 L Neut % (Auto) 74.0 Lymph % (Auto) 8.2 L Randolph % (Auto) 17.1 H Eos % (Auto) 0.3 Baso % (Auto) 0.4 Neut # 6.0 Lymph # 0.7 L Randolph # 1.4 H Eos # 0.0 Baso # 0.0 Neutrophils % (Manual) 74 Band Neutrophils % 2 Lymphocytes % (Manual) 8 L Monocytes % (Manual) 16 H Platelet Estimate Normal Large Platelets Present Hypochromasia (manual) Slight Poikilocytosis (manual Slight Anisocytosis (manual) Slight Ovalocytes Slight ESR pO2 VBG pH VBG pCO2 VBG HCO3 VBG Total CO2 VBG O2 Sat (Calc) VBG Base Excess VBG Potassium Sodium 132 Chloride 94 L Glucose Lactate FiO2 Crit Value Called To Crit Value Called By Crit Value Read Back Blood Gas Notified Time Potassium 3.7 Carbon Dioxide 30 Anion Gap 12 BUN 11 Creatinine 0.7 L Est GFR ( Amer) > 60 Est GFR (Non-Af Amer) > 60 Random Glucose 97 Calcium 8.3 L Total Bilirubin 2.0 H AST 78 H ALT 42 Alkaline Phosphatase 52 Total Protein 6.6 Albumin 2.9 L Globulin 3.7 Albumin/Globulin Ratio 0.8 L Venous Blood Potassium Assessment & Plan (1) Cellulitis and abscess of buttock Status: Acute (2) Maggot infestation Status: Acute (3) Ulcers of both lower legs Status: Acute (4) Acute alcohol intoxication Status: Acute (5) Acute depression Status: Acute (6) Alcohol abuse Status: Acute (7) Alcohol abuse with intoxication Status: Acute (8) Alcohol dependence Status: Acute (9) Bilateral leg edema Status: Acute (10) Bilateral leg ulcer Status: Acute (11) Cellulitis Status: Acute (12) Chronic back pain Status: Acute - Assessment and Plan (Free Text) Assessment: multiple MRSA INFECTIONS IN THE PAST CONSIDER MRI/BONE SCAN NEEDS COUNSELING
[2017-01-05] MEDS ORDERED: Povidone Iodine Topical 10% Sol TOP ONE (16:27)
[2017-01-06] MEDS: Piperacillin/Tazobact 3.375 GM in Sodium Chloride 0.9% 100 ML IVPB SCH ×4 (04:00→21:55)
--- NOTE | 2017-01-06 06:55 | CP.PCM.PN ---
Subjective - Date & Time of Evaluation Date of Evaluation: 01/06/17 Time of Evaluation: 06:30 - Subjective Subjective: 56 year old male was seen resting comfortably in bedside regarding b/l lower extremity cellulitis and ulcers. Patient denies any acute events overnight. He dnies n/v/f/c/sob/cp. He admits there is less drainage and he has less pain to his legs b/l. Denies n/v/f/c/sob/cp. Objective - Vital Signs/Intake and Output Vital Signs (last 24 hours): Temp Pulse Resp BP Pulse Ox 98.6 F 86 18 121/71 100 01/06/17 05:00 01/06/17 05:00 01/06/17 05:00 01/06/17 05:00 01/06/17 05:00 - Medications Medications: Current Medications Acetaminophen (Tylenol 325mg Tab) 650 mg PO Q4 PRN PRN Reason: Fever >100.4 F Clotrimazole (Lotrimin Af 1%) 1 applic TOP BID [facility] Last Admin: 01/05/17 18:42 Dose: 1 applic Enoxaparin Sodium (Lovenox) 40 mg SC DAILY JANNETH PRN Reason: Protocol Last Admin: 01/05/17 11:09 Dose: 40 mg Vancomycin HCl 1 gm/ Sodium (Chloride) 250 mls @ 166.667 mls/hr IVPB Q12 [facility] Last Admin: 01/05/17 21:00 Dose: 166.667 mls/hr Piperacillin Sod/Tazobactam (Sod 3.375 gm/ Sodium Chloride) 100 mls @ 100 mls/ hr IVPB Q6 [facility] Last Admin: 01/06/17 04:00 Dose: 100 mls/hr Ketorolac Tromethamine (Toradol) 30 mg IVP Q6 PRN PRN Reason: Pain, moderate (4-7) Last Admin: 01/06/17 01:23 Dose: 30 mg Sodium Hypochlorite (Dakins Solution 0.25%) 0 ml TOP DAILY [facility] Last Admin: 01/05/17 12:15 Dose: 1 applic - Labs Labs: 01/05/17 06:50 01/05/17 06:50 PT 12.0 SECONDS (9.6-11.2) H 01/04/17 16:25 INR 1.15 (0.92-1.08) H 01/04/17 16:25 APTT 33.1 SECONDS (23.3-32.5) H 01/04/17 16:25 - Constitutional Appears: No Acute Distress - Extremities Exam Additional comments: Lower extremity focused exam: VASC- DP and PT pulses 2/4 b/l, capillary refill < 5 sec to digits x 5, miild non-pitting edema noted extending circumferentialy from level digits to inferior of tibial tuberosity bilaterally, resolving. Temperature runs warm throughout bilateral feet and legs. Moderate diffuse non-blanchable erythema. NEURO-Pedal sensation is grossly intact DERM- Interdigtial macerations noted to all interspaces. Plantar digital skin and skin of weightbearing areas is blanched and not macerated bilaterally. No fluctuance noted bilaterally. Right- Lateral foot superficial ulceration measuring approximately 9 x 1cm with 100% granular base, absent hyperkeratotic margins, no undermining, no active drainage. Arianne-wound skin s fully epithelialized though not fully pigmented. Posterior leg superficial ulceration measuring approximately 2.2 x 3.4cm with 100% granular base, absent hyperkeratotic margins, no undermining, no active drainage. Arianne-wound skin s fully epithelialized though not fully pigmented. Left - Posterior Leg superficial ulceration measuring approximately 7 x 12 cm with 100% granular base, absent hyperkeratotic margins, no undermining, no active drainage. Arianne-wound skin s fully epithelialized though not fully pigmented. ORTHO- Mild tenderness noted to distal posterior and lateral legs - Neurological Exam Neurological Exam: Alert, Awake, Oriented x3 - Psychiatric Exam Psychiatric exam: Normal Affect, Normal Mood Assessment and Plan - Assessment and Plan (Free Text) Assessment: 56 year old male with bilateral foot and leg cellulits, multiple bilateral Rico Grade 1 Ulcerations Plan: patient examined and evaluated discussed in detail with attending Dr. West chart, labs, vitals reviewed;afebrile b/l LE dressed with xeroform, betadine gauze, sterile gauze, ABD, and kerlix continue IV abx per ID patient stable from podiatry standpoint to follow up in [facility] podiatry clinic upon d/c podiatry will continue to follow patient while in house
[2017-01-06 08:41] LABS: HEMATOCRIT 27.4 % (35.0-51.0); MEAN CELL VOLUME 89.4 fl (80.0-94.0); MEAN CORPUSCULAR HEMOGLOBIN 29.9 pg (27.0-31.0); MEAN CORPUSCULAR HGB CONC 33.4 g/dL (33.0-37.0); RED CELL DISTRIBUTION WIDTH 16.3 % (11.5-14.5); WHITE BLOOD COUNT 4.6 K/uL (4.8-10.8)
[2017-01-06] MEDS: Enoxaparin 40 mg Syringe SC SCH (08:54)
[2017-01-06] MEDS: Dakin's Topical 0.25%-Half Strength (480 ml) TOP SCH (08:55)
[2017-01-06 09:09] LABS: BLOOD UREA NITROGEN 7 mg/dl (9-20); CALCIUM 8.3 mg/dL (8.4-10.2); CARBON DIOXIDE 29 mmol/L (22-30); CHLORIDE 101 mmol/L (98-107); GFR AFRICAN-AMERICAN > 60; GLUCOSE,RANDOM 97 mg/dL (75-110); POTASSIUM 2.9 MMOL/L (3.6-5.0); SODIUM 136 mmol/l (132-148)
--- NOTE | 2017-01-06 10:43 | CP.PCM.PN ---
Subjective - Date & Time of Evaluation Date of Evaluation: 01/06/17 Time of Evaluation: 10:42 - Subjective Subjective: no complaints/distress no f/c, n/v. less diarrhea. c diff toxin negative, ag +. on contact iso. no pain at present. Objective - Vital Signs/Intake and Output Vital Signs (last 24 hours): Temp Pulse Resp BP Pulse Ox 98.5 F 83 16 132/77 97 01/06/17 08:04 01/06/17 08:04 01/06/17 08:04 01/06/17 08:04 01/06/17 08:04 - Medications Medications: Current Medications Acetaminophen (Tylenol 325mg Tab) 650 mg PO Q4 PRN PRN Reason: Fever >100.4 F Clotrimazole (Lotrimin Af 1%) 1 applic TOP BID [facility] Last Admin: 01/05/17 18:42 Dose: 1 applic Enoxaparin Sodium (Lovenox) 40 mg SC DAILY JANNETH PRN Reason: Protocol Last Admin: 01/06/17 08:54 Dose: 40 mg Vancomycin HCl 1 gm/ Sodium (Chloride) 250 mls @ 166.667 mls/hr IVPB Q12 [facility] Last Admin: 01/06/17 08:54 Dose: 166.667 mls/hr Piperacillin Sod/Tazobactam (Sod 3.375 gm/ Sodium Chloride) 100 mls @ 100 mls/ hr IVPB Q6 [facility] Last Admin: 01/06/17 09:16 Dose: 100 mls/hr Ketorolac Tromethamine (Toradol) 30 mg IVP Q6 PRN PRN Reason: Pain, moderate (4-7) Last Admin: 01/06/17 01:23 Dose: 30 mg Sodium Hypochlorite (Dakins Solution 0.25%) 0 ml TOP DAILY [facility] Last Admin: 01/06/17 08:55 Dose: 1 applic - Labs Labs: 01/06/17 08:00 01/06/17 08:00 PT 12.0 SECONDS (9.6-11.2) H 01/04/17 16:25 INR 1.15 (0.92-1.08) H 01/04/17 16:25 APTT 33.1 SECONDS (23.3-32.5) H 01/04/17 16:25 - Constitutional Appears: Well, Non-toxic, No Acute Distress - Head Exam Head Exam: ATRAUMATIC, NORMAL INSPECTION, NORMOCEPHALIC - Eye Exam Eye Exam: EOMI, Normal appearance, PERRL Pupil Exam: NORMAL ACCOMODATION, PERRL - ENT Exam ENT Exam: Mucous Membranes Moist, Normal Exam - Neck Exam Neck Exam: Full ROM, Normal Inspection. absent: Lymphadenopathy - Respiratory Exam Respiratory Exam: Clear to Ausculation Bilateral, NORMAL BREATHING PATTERN - Cardiovascular Exam Cardiovascular Exam: REGULAR RHYTHM, +S1, +S2. absent: Murmur - GI/Abdominal Exam GI & Abdominal Exam: Soft, Normal Bowel Sounds. absent: Tenderness - Extremities Exam Extremities Exam: Full ROM, Normal Capillary Refill, Normal Inspection. absent : Joint Swelling, Pedal Edema - Back Exam Back Exam: NORMAL INSPECTION - Neurological Exam Neurological Exam: Alert, Awake, CN II-XII Intact, Normal Gait, Oriented x3 - Psychiatric Exam Psychiatric exam: Normal Affect, Normal Mood - Skin Skin Exam: Dry, Intact, Normal Color, Warm Assessment and Plan (1) DVT prophylaxis Assessment & Plan: scd and aehose, lovenox Status: Acute (2) C. difficile colitis Assessment & Plan: vnacom, zosyn ID Status: Acute (3) Cellulitis and abscess of buttock Assessment & Plan: vnaco, zosyn, id,wound care, ?? verónica Status: Acute (4) Maggot infestation Assessment & Plan: peng, will monitor, contact iso Status: Acute (5) Ulcers of both lower legs Assessment & Plan: vnaco, zosyn, id,wound care, ?? verónica podiatry Status: Acute
[2017-01-06] MEDS: Potassium CL 10mEq/100ml 100 ML IVPB SCH ×4 (11:32→16:35)
[2017-01-06] MEDS: Multivitamin With Minerals Tab PO SCH (12:51)
[2017-01-07] MEDS: Piperacillin/Tazobact 3.375 GM in Sodium Chloride 0.9% 100 ML IVPB SCH ×2 (03:52→09:53)
[2017-01-07 06:56] LABS: BASO % 0.7 % (0.0-2.0); EOS # 0.1 K/uL (0.0-0.7); EOS % 2.7 % (0.0-4.0); HEMATOCRIT 27.1 % (35.0-51.0); LYMPH # 0.6 K/uL (1.0-4.3); LYMPH % 14.9 % (20.0-40.0); MEAN CELL VOLUME 90.2 fl (80.0-94.0); MEAN CORPUSCULAR HEMOGLOBIN 29.8 pg (27.0-31.0); MEAN CORPUSCULAR HGB CONC 33.1 g/dL (33.0-37.0); MEAN PLATELET VOLUME 6.3 fl (7.2-11.7); MONO # 0.9 K/uL (0.0-0.8); MONO % 20.2 % (0.0-10.0); NEUT # 2.7 K/uL (1.8-7.0); NEUT % 61.5 % (50.0-75.0); NRBC % 0.2 % (0.0-0.0); PLATELET COUNT 309 K/uL (130-400); WHITE BLOOD COUNT 4.3 K/uL (4.8-10.8)
[2017-01-07 07:19] LABS: ALB/GLOB RATIO 0.8 (1.0-2.1); ALKALINE PHOSPHATASE 55 U/L (38-126); ALT/SGPT 43 U/L (21-72); AST/SGOT 65 U/L (17-59); BILIRUBIN,TOTAL 0.3 mg/dl (0.2-1.3); BLOOD UREA NITROGEN 4 mg/dl (9-20); CALCIUM 8.4 mg/dL (8.4-10.2); CARBON DIOXIDE 28 mmol/L (22-30); CHLORIDE 102 mmol/L (98-107); GFR AFRICAN-AMERICAN > 60; GLUCOSE,RANDOM 112 mg/dL (75-110); POTASSIUM 3.1 MMOL/L (3.6-5.0); SODIUM 139 mmol/l (132-148)
[2017-01-07 08:54] LABS: BASOPHIL 1 % (0-2); EOSINOPHIL 2 % (0-7); NEUTROPHIL 60 % (42-75); TOTAL CELLS COUNTED 100
--- NOTE | 2017-01-07 09:28 | CP.PCM.PN ---
Subjective - Date & Time of Evaluation Date of Evaluation: 01/07/17 Time of Evaluation: 09:28 - Subjective Subjective: dictated note pt w/o distress/complaints for dispo c/s ntoed. ID on board cont wound care Objective - Vital Signs/Intake and Output Vital Signs (last 24 hours): Temp Pulse Resp BP Pulse Ox 98.7 F 83 16 136/78 100 01/07/17 07:55 01/07/17 07:55 01/07/17 07:55 01/07/17 07:55 01/07/17 07:55 - Medications Medications: Current Medications Acetaminophen (Tylenol 325mg Tab) 650 mg PO Q4 PRN PRN Reason: Fever >100.4 F Clotrimazole (Lotrimin Af 1%) 1 applic TOP BID [facility] Last Admin: 01/06/17 16:36 Dose: 1 applic Enoxaparin Sodium (Lovenox) 40 mg SC DAILY JANNETH PRN Reason: Protocol Last Admin: 01/06/17 08:54 Dose: 40 mg Vancomycin HCl 1 gm/ Sodium (Chloride) 250 mls @ 166.667 mls/hr IVPB Q12 [facility]ANNET[facility] Last Admin: 01/06/17 21:53 Dose: 166.667 mls/hr Piperacillin Sod/Tazobactam (Sod 3.375 gm/ Sodium Chloride) 100 mls @ 100 mls/ hr IVPB Q6 [facility]ANNET[facility] Last Admin: 01/07/17 03:52 Dose: 100 mls/hr Ketorolac Tromethamine (Toradol) 30 mg IVP Q6 PRN PRN Reason: Pain, moderate (4-7) Last Admin: 01/06/17 23:37 Dose: 30 mg Multivitamins/Minerals (Therapeutic-M Tab) 1 tab PO DAILY [facility]ANNETH Last Admin: 01/06/17 12:51 Dose: 1 tab Sodium Hypochlorite (Dakins Solution 0.25%) 0 ml TOP DAILY [facility] Last Admin: 01/06/17 08:55 Dose: 1 applic - Labs Labs: 01/07/17 06:30 01/07/17 06:30 PT 12.0 SECONDS (9.6-11.2) H 01/04/17 16:25 INR 1.15 (0.92-1.08) H 01/04/17 16:25 APTT 33.1 SECONDS (23.3-32.5) H 01/04/17 16:25 Assessment and Plan (1) DVT prophylaxis Status: Acute (2) C. difficile colitis Status: Acute (3) Cellulitis and abscess of buttock Status: Acute (4) Maggot infestation Status: Acute (5) Ulcers of both lower legs Status: Acute
[2017-01-07] MEDS: Enoxaparin 40 mg Syringe SC SCH (09:55)
[2017-01-07] MEDS: Multivitamin With Minerals Tab PO SCH (09:55)
[2017-01-07] MEDS: Potassium CL 10mEq/100ml 100 ML IVPB SCH ×4 (10:12→16:09)
[2017-01-07] MEDS: Dakin's Topical 0.25%-Half Strength (480 ml) TOP SCH (10:19)
--- NOTE | 2017-01-07 11:28 | PN ---
DATE: 01/07/2017 The patient is doing well in bed, no complaints. No distress, states the diarrhea has stopped. No complaint in the legs or the buttocks. Wound care continues. Blood work is reviewed. The patient is for disposition with social work tomorrow. REVIEW OF SYSTEMS: Negative. PHYSICAL EXAMINATION: GENERAL: Alert, oriented. HEART: Regular rate and rhythm. No murmurs, rubs, or gallops. LUNGS: Clear in all pichardo bilaterally. ABDOMEN: Soft, nontender. Bowel sounds x 4. Dressings are intact. EXTREMITIES: Distal PMS noted. DIAGNOSES AND PLAN: Wounds to the lower extremities and buttocks. Continue wound care. Continue antibiotics. Podiatry and ID consult. Disposition most likely to a subacute facility tomorrow. Clostridium difficile. Continue antibiotics, diarrhea also appears to be resolving. We will follow. Deep venous thrombosis prophylaxis, sequential compression devices and anti-embolism hose, Lovenox. We will continue to monitor patient closely. We will continue to follow the patient through disposition. Miguel REICH cc: [id number] TT: 01/07/2017 11:27:01 Confirmation # [id number] Dictation # [id number] malathi MEHTA
--- NOTE | 2017-01-07 13:54 | CP.PCM.PN ---
Subjective - Date & Time of Evaluation Date of Evaluation: 01/07/17 Time of Evaluation: 08:00 - Subjective Subjective: less painful swelling iv rx in progress all entries reviewed labs/ cultures reviewed rx modified Objective - Vital Signs/Intake and Output Vital Signs (last 24 hours): Temp Pulse Resp BP Pulse Ox 98.5 F 65 18 149/78 99 01/07/17 11:56 01/07/17 11:56 01/07/17 11:56 01/07/17 11:56 01/07/17 11:56 - Medications Medications: Current Medications Acetaminophen (Tylenol 325mg Tab) 650 mg PO Q4 PRN PRN Reason: Fever >100.4 F Clotrimazole (Lotrimin Af 1%) 1 applic TOP BID [facility] Last Admin: 01/07/17 09:55 Dose: 1 applic Enoxaparin Sodium (Lovenox) 40 mg SC DAILY [facility] PRN Reason: Protocol Last Admin: 01/07/17 09:55 Dose: 40 mg Vancomycin HCl 1 gm/ Sodium (Chloride) 250 mls @ 166.667 mls/hr IVPB Q12 [facility] Last Admin: 01/07/17 09:54 Dose: 166.667 mls/hr Piperacillin Sod/Tazobactam (Sod 3.375 gm/ Sodium Chloride) 100 mls @ 100 mls/ hr IVPB Q6 [facility] Last Admin: 01/07/17 09:53 Dose: 100 mls/hr Potassium Chloride (Potassium Chloride 10 Meq/100 Ml) 100 mls @ 100 mls/hr IVPB Q1 [facility] Stop: 01/07/17 13:59 Last Admin: 01/07/17 11:31 Dose: 100 mls/hr Ketorolac Tromethamine (Toradol) 30 mg IVP Q6 PRN PRN Reason: Pain, moderate (4-7) Last Admin: 01/07/17 10:11 Dose: 30 mg Multivitamins/Minerals (Therapeutic-M Tab) 1 tab PO DAILY [facility] Last Admin: 01/07/17 09:55 Dose: 1 tab Sodium Hypochlorite (Dakins Solution 0.25%) 0 ml TOP DAILY [facility] Last Admin: 01/07/17 10:19 Dose: 1 applic - Labs Labs: 01/07/17 06:30 01/07/17 06:30 PT 12.0 SECONDS (9.6-11.2) H 05/04/17 16:25 INR 1.15 (0.92-1.08) H 01/04/17 16:25 APTT 33.1 SECONDS (23.3-32.5) H 01/04/17 16:25 - Constitutional Appears: Non-toxic, Cachectic, Chronically Ill - Head Exam Head Exam: NORMOCEPHALIC - Eye Exam Eye Exam: PERRL. absent: Scleral icterus - ENT Exam ENT Exam: Mucous Membranes Dry - Neck Exam Neck Exam: absent: Lymphadenopathy - Respiratory Exam Respiratory Exam: Decreased Breath Sounds, Rhonchi - Cardiovascular Exam Cardiovascular Exam: REGULAR RHYTHM, +S1, +S2 - GI/Abdominal Exam GI & Abdominal Exam: Distended, Soft. absent: Tenderness - Rectal Exam Rectal Exam: Deferred - Exam Exam: NORMAL INSPECTION - Extremities Exam Extremities Exam: Pedal Edema, Tenderness. absent: Calf Tenderness - Back Exam Back Exam: absent: CVA tenderness (L), CVA tenderness (R), paraspinal tenderness - Neurological Exam Neurological Exam: Alert, Awake, Oriented x3 - Psychiatric Exam Psychiatric exam: Normal Mood - Skin Skin Exam: Dry, Intact Assessment and Plan (1) Cellulitis and abscess of buttock Status: Acute (2) Maggot infestation Status: Acute (3) Ulcers of both lower legs Status: Acute (4) Acute alcohol intoxication Status: Acute (5) Acute depression Status: Acute (6) Alcohol abuse Status: Acute (7) Alcohol abuse with intoxication Status: Acute (8) Alcohol dependence Status: Acute (9) Bilateral leg edema Status: Acute (10) Bilateral leg ulcer Status: Acute (11) Cellulitis Status: Acute (12) Chronic back pain Status: Acute - Assessment and Plan (Free Text) Assessment: cont iv rx consider bone scan may need SHAY
[2017-01-07] MEDS: Cefepime 1 GM in Sodium Chloride 0.9% 100 ML IVPB SCH (20:36)
--- NOTE | 2017-01-08 06:34 | CP.PCM.PN ---
Subjective - Date & Time of Evaluation Date of Evaluation: 01/08/17 Time of Evaluation: 06:40 - Subjective Subjective: 56 year old male was seen resting comfortably in bedside regarding b/l lower extremity cellulitis and ulcers. Patient denies any acute events overnight. He denies n/v/f/c/sob/cp. He admits there is less drainage and he has less pain to his legs b/l. Denies n/v/f/c/sob/cp. Objective - Vital Signs/Intake and Output Vital Signs (last 24 hours): Temp Pulse Resp BP Pulse Ox 98.9 F 86 19 146/81 99 01/08/17 04:41 01/08/17 04:41 01/08/17 04:41 01/08/17 04:41 01/08/17 04:41 - Medications Medications: Current Medications Acetaminophen (Tylenol 325mg Tab) 650 mg PO Q4 PRN PRN Reason: Fever >100.4 F Clotrimazole (Lotrimin Af 1%) 1 applic TOP BID [facility] Last Admin: 01/07/17 16:09 Dose: 1 applic Enoxaparin Sodium (Lovenox) 40 mg SC DAILY [facility] PRN Reason: Protocol Last Admin: 01/07/17 09:55 Dose: 40 mg Vancomycin HCl 1 gm/ Sodium (Chloride) 250 mls @ 166.667 mls/hr IVPB Q12 [facility] Last Admin: 01/07/17 20:37 Dose: 166.667 mls/hr Cefepime HCl 1 gm/ Sodium (Chloride) 100 mls @ 100 mls/hr IVPB Q12 [facility] Last Admin: 01/07/17 20:36 Dose: 100 mls/hr Ketorolac Tromethamine (Toradol) 30 mg IVP Q6 PRN PRN Reason: Pain, moderate (4-7) Last Admin: 01/07/17 22:07 Dose: 30 mg Multivitamins/Minerals (Therapeutic-M Tab) 1 tab PO DAILY [facility] Last Admin: 01/07/17 09:55 Dose: 1 tab Sodium Hypochlorite (Dakins Solution 0.25%) 0 ml TOP DAILY [facility] Last Admin: 01/07/17 10:19 Dose: 1 applic - Labs Labs: 01/07/17 06:30 01/07/17 06:30 PT 12.0 SECONDS (9.6-11.2) H 01/04/17 16:25 INR 1.15 (0.92-1.08) H 01/04/17 16:25 APTT 33.1 SECONDS (23.3-32.5) H 01/04/17 16:25 - Constitutional Appears: Well, Non-toxic, No Acute Distress - Extremities Exam Additional comments: Lower extremity focused exam: VASC- DP and PT pulses 2/4 b/l, capillary refill < 5 sec to digits x 5, miild non-pitting edema noted extending circumferentialy from level digits to inferior of tibial tuberosity bilaterally, resolving. Temperature runs warm throughout bilateral feet and legs. Moderate diffuse non-blanchable erythema. NEURO-Pedal sensation is grossly intact DERM- Interdigtial macerations noted to all interspaces. Plantar digital skin and skin of weightbearing areas is blanched bilaterally. No fluctuance noted bilaterally. Right- Lateral foot superficial ulceration measuring approximately 9 x 1cm with 100% granular base, absent hyperkeratotic margins, no undermining, no active drainage. Arianne-wound skin s fully epithelialized though not fully pigmented. Posterior leg superficial ulceration measuring approximately 2.2 x 3.4cm with 100% granular base, absent hyperkeratotic margins, no undermining, no active drainage. Arianne-wound skin s fully epithelialized though not fully pigmented. Left - Posterior Leg superficial ulceration measuring approximately 7 x 12 cm with 100% granular base, absent hyperkeratotic margins, no undermining, no active drainage. Arianne-wound skin s fully epithelialized though not fully pigmented. ORTHO- Mild tenderness noted to distal posterior and lateral legs - Neurological Exam Neurological Exam: Alert, Awake, Oriented x3 - Psychiatric Exam Psychiatric exam: Normal Affect, Normal Mood Assessment and Plan - Assessment and Plan (Free Text) Assessment: 56 year old male with bilateral foot and leg cellulits, multiple bilateral Rico Grade 1 Ulceration Plan: patient examined and evaluated discussed in detail with attending Dr. West chart, labs, vitals reviewed;afebrile b/l LE dressed with xeroform, betadine gauze, sterile gauze, ABD, and kerlix continue IV abx per ID patient stable from podiatry standpoint to follow up in [facility] podiatry clinic upon d/c podiatry will continue to follow patient while in house
--- NOTE | 2017-01-08 07:26 | CP.PCM.PN ---
Subjective - Date & Time of Evaluation Date of Evaluation: 01/08/17 Time of Evaluation: 07:26 - Subjective Subjective: pt comfortable in bed, wounds cared for by wound rn and podiatry. for verónica. no f/ c, n/v/d. am labs pending. for ?? verónica. consults appriciated. Objective - Vital Signs/Intake and Output Vital Signs (last 24 hours): Temp Pulse Resp BP Pulse Ox 98.9 F 86 19 146/81 99 01/08/17 04:41 01/08/17 04:41 01/08/17 04:41 01/08/17 04:41 01/08/17 04:41 - Medications Medications: Current Medications Acetaminophen (Tylenol 325mg Tab) 650 mg PO Q4 PRN PRN Reason: Fever >100.4 F Clotrimazole (Lotrimin Af 1%) 1 applic TOP BID [facility] Last Admin: 01/07/17 16:09 Dose: 1 applic Enoxaparin Sodium (Lovenox) 40 mg SC DAILY [facility] PRN Reason: Protocol Last Admin: 01/07/17 09:55 Dose: 40 mg Vancomycin HCl 1 gm/ Sodium (Chloride) 250 mls @ 166.667 mls/hr IVPB Q12 [facility] Last Admin: 01/07/17 20:37 Dose: 166.667 mls/hr Cefepime HCl 1 gm/ Sodium (Chloride) 100 mls @ 100 mls/hr IVPB Q12 [facility] Last Admin: 01/07/17 20:36 Dose: 100 mls/hr Ketorolac Tromethamine (Toradol) 30 mg IVP Q6 PRN PRN Reason: Pain, moderate (4-7) Last Admin: 01/07/17 22:07 Dose: 30 mg Multivitamins/Minerals (Therapeutic-M Tab) 1 tab PO DAILY [facility] Last Admin: 01/07/17 09:55 Dose: 1 tab Sodium Hypochlorite (Dakins Solution 0.25%) 0 ml TOP DAILY [facility] Last Admin: 01/07/17 10:19 Dose: 1 applic - Labs Labs: 01/07/17 06:30 01/07/17 06:30 PT 12.0 SECONDS (9.6-11.2) H 01/04/17 16:25 INR 1.15 (0.92-1.08) H 01/04/17 16:25 APTT 33.1 SECONDS (23.3-32.5) H 01/04/17 16:25 - Constitutional Appears: Well, Non-toxic, No Acute Distress - Head Exam Head Exam: ATRAUMATIC, NORMAL INSPECTION, NORMOCEPHALIC - Eye Exam Eye Exam: EOMI, Normal appearance, PERRL Pupil Exam: NORMAL ACCOMODATION, PERRL - ENT Exam ENT Exam: Mucous Membranes Moist, Normal Exam - Neck Exam Neck Exam: Full ROM, Normal Inspection. absent: Lymphadenopathy - Respiratory Exam Respiratory Exam: Clear to Ausculation Bilateral, NORMAL BREATHING PATTERN - Cardiovascular Exam Cardiovascular Exam: REGULAR RHYTHM, RRR, +S1, +S2. absent: Murmur - GI/Abdominal Exam GI & Abdominal Exam: Soft, Normal Bowel Sounds. absent: Tenderness - Extremities Exam Extremities Exam: Full ROM, Normal Capillary Refill, Normal Inspection. absent : Joint Swelling, Pedal Edema - Back Exam Back Exam: NORMAL INSPECTION - Neurological Exam Neurological Exam: Alert, Awake, CN II-XII Intact, Normal Gait, Oriented x3 - Psychiatric Exam Psychiatric exam: Normal Affect, Normal Mood - Skin Skin Exam: Dry, Intact, Normal Color, Warm Assessment and Plan (1) DVT prophylaxis Status: Acute (2) C. difficile colitis Status: Acute (3) Cellulitis and abscess of buttock Status: Acute (4) Maggot infestation Status: Acute (5) Ulcers of both lower legs Status: Acute - Assessment and Plan (Free Text) Assessment: (1) DVT prophylaxis Assessment & Plan: scd and aehose, lovenox Status: Acute (2) C. difficile colitis Assessment & Plan: vnacom, zosyn ID Status: Acute (3) Cellulitis and abscess of buttock Assessment & Plan: vnaco, zosyn, id,wound care, ?? verónica Status: Acute (4) Maggot infestation Assessment & Plan: decon, will monitor, contact iso Status: Acute (5) Ulcers of both lower legs Assessment & Plan: vnaco, zosyn, id,wound care, ?? verónica podiatry Status: Acute
[2017-01-08 07:27] LABS: ALB/GLOB RATIO 0.8 (1.0-2.1); ALKALINE PHOSPHATASE 75 U/L (38-126); ALT/SGPT 39 U/L (21-72); AST/SGOT 61 U/L (17-59); BILIRUBIN,TOTAL 0.2 mg/dl (0.2-1.3); BLOOD UREA NITROGEN 3 mg/dl (9-20); CALCIUM 8.7 mg/dL (8.4-10.2); CARBON DIOXIDE 29 mmol/L (22-30); CHLORIDE 101 mmol/L (98-107); GFR AFRICAN-AMERICAN > 60; GLUCOSE,RANDOM 140 mg/dL (75-110); SODIUM 139 mmol/l (132-148); TOTAL PROTEIN 6.6 G/DL (6.3-8.2)
[2017-01-08 09:37] LABS: BASO % 0.8 % (0.0-2.0); EOS # 0.1 K/uL (0.0-0.7); EOS % 1.8 % (0.0-4.0); HEMATOCRIT 28.7 % (35.0-51.0); LYMPH # 0.9 K/uL (1.0-4.3); LYMPH % 16.2 % (20.0-40.0); MEAN CELL VOLUME 89.3 fl (80.0-94.0); MEAN CORPUSCULAR HEMOGLOBIN 30.1 pg (27.0-31.0); MEAN CORPUSCULAR HGB CONC 33.7 g/dL (33.0-37.0); MEAN PLATELET VOLUME 6.6 fl (7.2-11.7); MONO # 0.9 K/uL (0.0-0.8); MONO % 16.1 % (0.0-10.0); NEUT # 3.5 K/uL (1.8-7.0); NEUT % 65.1 % (50.0-75.0); NRBC % 0.1 % (0.0-0.0); RED CELL DISTRIBUTION WIDTH 16.4 % (11.5-14.5); WHITE BLOOD COUNT 5.4 K/uL (4.8-10.8)
[2017-01-08] MEDS: Enoxaparin 40 mg Syringe SC SCH (10:30)
[2017-01-08] MEDS: Cefepime 1 GM in Sodium Chloride 0.9% 100 ML IVPB SCH ×2 (10:31→21:26)
[2017-01-08] MEDS: Multivitamin With Minerals Tab PO SCH (10:33)
[2017-01-08] MEDS: Potassium Chloride 20 mEq ER Tab PO SCH (10:36)
[2017-01-08] MEDS: Dakin's Topical 0.25%-Half Strength (480 ml) TOP SCH (10:49)
[2017-01-08] MEDS: Potassium CL 10mEq/100ml 100 ML IVPB SCH ×4 (12:15→18:40)
--- NOTE | 2017-01-08 12:23 | CP.PCM.PN ---
Subjective - Date & Time of Evaluation Date of Evaluation: 01/08/17 Time of Evaluation: 07:00 - Subjective Subjective: rx in progress await MRI cont IV rx Objective - Vital Signs/Intake and Output Vital Signs (last 24 hours): Temp Pulse Resp BP Pulse Ox 99.0 F 82 20 135/80 99 01/08/17 12:16 01/08/17 12:16 01/08/17 12:16 01/08/17 12:16 01/08/17 12:16 - Medications Medications: Current Medications Acetaminophen (Tylenol 325mg Tab) 650 mg PO Q4 PRN PRN Reason: Fever >100.4 F Clotrimazole (Lotrimin Af 1%) 1 applic TOP BID [facility] Last Admin: 01/08/17 10:39 Dose: 1 applic Vancomycin HCl 1 gm/ Sodium (Chloride) 250 mls @ 166.667 mls/hr IVPB Q12 [facility] Last Admin: 01/08/17 12:14 Dose: 166.667 mls/hr Cefepime HCl 1 gm/ Sodium (Chloride) 100 mls @ 100 mls/hr IVPB Q12 [facility] Last Admin: 01/08/17 10:31 Dose: 100 mls/hr Ketorolac Tromethamine (Toradol) 30 mg IVP Q6 PRN PRN Reason: Pain, moderate (4-7) Last Admin: 01/08/17 10:52 Dose: 30 mg Multivitamins/Minerals (Therapeutic-M Tab) 1 tab PO DAILY [facility] Last Admin: 01/08/17 10:33 Dose: 1 tab Potassium Chloride (K-Dur 20 Meq Er Tab) 20 meq PO DAILY [facility] Last Admin: 01/08/17 10:36 Dose: 20 meq Sodium Hypochlorite (Dakins Solution 0.25%) 0 ml TOP DAILY [facility] Last Admin: 01/08/17 10:49 Dose: 1 applic - Labs Labs: 01/08/17 09:00 01/08/17 05:25 PT 12.0 SECONDS (9.6-11.2) H 01/04/17 16:25 INR 1.15 (0.92-1.08) H 01/04/17 16:25 APTT 33.1 SECONDS (23.3-32.5) H 01/04/17 16:25 - Constitutional Appears: Cachectic - Head Exam Head Exam: NORMOCEPHALIC - Eye Exam Eye Exam: absent: Scleral icterus - ENT Exam ENT Exam: Mucous Membranes Dry - Neck Exam Neck Exam: absent: Lymphadenopathy - Respiratory Exam Respiratory Exam: Decreased Breath Sounds, Clear to Ausculation Bilateral - Cardiovascular Exam Cardiovascular Exam: REGULAR RHYTHM, RRR, +S1, +S2 - GI/Abdominal Exam GI & Abdominal Exam: Distended, Soft Assessment and Plan (1) Cellulitis and abscess of buttock Status: Acute (2) Maggot infestation Status: Acute (3) Ulcers of both lower legs Status: Acute (4) Acute alcohol intoxication Status: Acute (5) Acute depression Status: Acute (6) Alcohol abuse Status: Acute (7) Alcohol abuse with intoxication Status: Acute (8) Alcohol dependence Status: Acute (9) Bilateral leg edema Status: Acute (10) Bilateral leg ulcer Status: Acute (11) Cellulitis Status: Acute (12) Chronic back pain Status: Acute
--- NOTE | 2017-01-08 21:25 | MRI ---
EXAM: MR Left Lower Extremity Without Intravenous Contrast, Tibia and Fibula CLINICAL HISTORY: 56 years old, male; Signs and symptoms; Difficulty in walking; Additional info: R/O om TECHNIQUE: Multiplanar magnetic resonance images of the left tibia and fibula without intravenous contrast. COMPARISON: No relevant prior studies available. FINDINGS: Bones/joints: Bone marrow signal within normal limits. No acute fracture. No dislocation. Soft tissues: Mild patchy high T1, high T2 signal within visualized musculature. Skin thickening with minimal high T2 signal within subcutaneous tissues. IMPRESSION: 1. No MRI evidence of osteomyelitis. 2. Mild myositis and/or denervation. 3. Possible early cellulitis. 4. Incidental/non-acute findings are described above.
--- NOTE | 2017-01-08 21:25 | MRI ---
EXAM: MR Right Lower Extremity Without Intravenous Contrast, Tibia and Fibula CLINICAL HISTORY: 56 years old, male; Signs and symptoms; Difficulty in walking; Additional info: R/O om TECHNIQUE: Multiplanar magnetic resonance images of the right tibia and fibula without intravenous contrast. COMPARISON: No relevant prior studies available. FINDINGS: Bones/joints: Bone marrow signal within normal limits. No acute fracture. No dislocation. Soft tissues: Mild patchy high T1, high T2 signal within visualized musculature. Skin thickening with minimal high T2 signal within subcutaneous tissues. IMPRESSION: 1. No MRI evidence of osteomyelitis. 2. Mild myositis and/or denervation. 3. Possible early cellulitis. 4. Incidental/non-acute findings are described above.
[2017-01-09 05:38] VITALS: RESP 18
[2017-01-09 06:46] LABS: HEMATOCRIT 30.6 % (35.0-51.0); MEAN CELL VOLUME 90.6 fl (80.0-94.0); MEAN CORPUSCULAR HEMOGLOBIN 29.3 pg (27.0-31.0); MEAN CORPUSCULAR HGB CONC 32.3 g/dL (33.0-37.0); RED CELL DISTRIBUTION WIDTH 16.4 % (11.5-14.5); WHITE BLOOD COUNT 6.5 K/uL (4.8-10.8)
[2017-01-09 06:54] LABS: BLOOD UREA NITROGEN 6 mg/dl (9-20); CALCIUM 9.1 mg/dL (8.4-10.2); CARBON DIOXIDE 27 mmol/L (22-30); CHLORIDE 101 mmol/L (98-107); GFR AFRICAN-AMERICAN > 60; GLUCOSE,RANDOM 108 mg/dL (75-110); POTASSIUM 3.5 MMOL/L (3.6-5.0); SODIUM 139 mmol/l (132-148)
--- NOTE | 2017-01-09 08:41 | CP.PCM.PN ---
Subjective - Date & Time of Evaluation Date of Evaluation: 01/09/17 Time of Evaluation: 08:25 - Subjective Subjective: 56 year old male was seen resting comfortably in bedside regarding b/l lower extremity cellulitis and ulcers. Patient denies any acute events overnight. He denies recent n/v/f/c/sob/cp. He admits there is remarkable resolution of swelling and pain to the legs. Pt has no pedal complaints at this time. Objective - Vital Signs/Intake and Output Vital Signs (last 24 hours): Temp Pulse Resp BP Pulse Ox 98.2 F 82 18 148/85 99 01/09/17 08:28 01/09/17 08:28 01/09/17 08:28 01/09/17 08:28 01/09/17 08:28 - Medications Medications: Current Medications Acetaminophen (Tylenol 325mg Tab) 650 mg PO Q4 PRN PRN Reason: Fever >100.4 F Clotrimazole (Lotrimin Af 1%) 1 applic TOP BID [facility] Last Admin: 01/08/17 17:57 Dose: 1 applic Vancomycin HCl 1 gm/ Sodium (Chloride) 250 mls @ 166.667 mls/hr IVPB Q12 [facility] Last Admin: 01/08/17 21:25 Dose: 166.667 mls/hr Cefepime HCl 1 gm/ Sodium (Chloride) 100 mls @ 100 mls/hr IVPB Q12 [facility] Last Admin: 01/08/17 21:26 Dose: 100 mls/hr Ketorolac Tromethamine (Toradol) 30 mg IVP Q6 PRN PRN Reason: Pain, moderate (4-7) Last Admin: 01/09/17 04:13 Dose: 30 mg Multivitamins/Minerals (Therapeutic-M Tab) 1 tab PO DAILY [facility] Last Admin: 01/08/17 10:33 Dose: 1 tab Potassium Chloride (K-Dur 20 Meq Er Tab) 20 meq PO DAILY [facility] Last Admin: 01/08/17 10:36 Dose: 20 meq Sodium Hypochlorite (Dakins Solution 0.25%) 0 ml TOP DAILY [facility] Last Admin: 01/08/17 10:49 Dose: 1 applic - Labs Labs: 01/09/17 05:35 01/09/17 05:35 PT 12.0 SECONDS (9.6-11.2) H 01/04/17 16:25 INR 1.15 (0.92-1.08) H 01/04/17 16:25 APTT 33.1 SECONDS (23.3-32.5) H 01/04/17 16:25 - Constitutional Appears: Well, Non-toxic, No Acute Distress - Extremities Exam Additional comments: Lower extremity focused exam: VASC- DP and PT pulses 2/4 b/l, capillary refill < 5 sec to digits x 5, minor non-pitting edema noted now localized to level of forefoot. Temperature runs warm to cool proximal to distal throughout bilateral feet and legs, within normal limits. No noted erythema. NEURO-Pedal sensation is grossly intact DERM- Interdigtial macerations noted to all lateral 3 webspaces bilaterally, markedly improved. Plantar digital skin and skin of weightbearing areas normal, uniform pigmentation has returned bilaterally. No fluctuance noted bilaterally. Right- Lateral foot superficial ulceration measuring approximately 9 x 1cm with 100% granular base, absent hyperkeratotic margins, no undermining, no active drainage. Wound and maurice-wound skin fully epithelializing, though not fully pigmented. Posterior leg superficial ulceration measuring approximately 2.2 x 3.4cm with 100% granular base, absent hyperkeratotic margins, no undermining, no active drainage. Wound and maurice-wound skin fully epithelializing, though not fully pigmented. Left - Posterior Leg superficial ulceration measuring approximately 7 x 12 cm with 100% granular base, absent hyperkeratotic margins, no undermining, no active drainage. Wound and maurice-wound skin fully epithelializing, though not fully pigmented. ORTHO- Mild tenderness noted to distal posterior and lateral legs - Neurological Exam Neurological Exam: Alert, Awake, Oriented x3 - Psychiatric Exam Psychiatric exam: Normal Affect, Normal Mood Assessment and Plan - Assessment and Plan (Free Text) Assessment: 56 year old male with bilateral foot and leg cellulits, multiple bilateral Rico Grade 1 Ulceration Plan: Patient evaluated and treated. Discussed in detail with attending Dr. West Chart, labs, vitals reviewed;afebrile B/l LE cleansed with normal saline, redressed dressed with xeroform, betadine soaked gauze to areas of maceration, sterile gauze, ABD, and kerlix -continue IV abx per ID Patient stable from podiatry standpoint To follow up in [facility] podiatry clinic upon d/c within 1 week. Podiatry signing off.
[2017-01-09] MEDS: Dakin's Topical 0.25%-Half Strength (480 ml) TOP SCH (08:48)
[2017-01-09] MEDS: Potassium Chloride 20 mEq ER Tab PO SCH (08:48)
[2017-01-09] MEDS: Multivitamin With Minerals Tab PO SCH (08:49)
[2017-01-09] MEDS: Cefepime 1 GM in Sodium Chloride 0.9% 100 ML IVPB SCH (08:50)
--- NOTE | 2017-01-09 10:49 | CP.PCM.PN ---
<Twyla Machado - Last Filed: 01/09/17 11:06> Subjective - Subjective Subjective: 56 year old male was seen resting comfortably in bedside regarding b/l lower extremity cellulitis and ulcers. Patient denies any acute events overnight. He denies recent n/v/f/c/sob/cp. He admits there is less drainage and he has less pain to his legs b/l. Denies n/v/f/c/sob/cp. Objective - Vital Signs/Intake and Output Vital Signs (last 24 hours): Temp Pulse Resp BP Pulse Ox 98.2 F 82 18 148/85 99 01/09/17 08:28 01/09/17 08:28 01/09/17 08:28 01/09/17 08:28 01/09/17 08:28 - Medications Medications: Current Medications Acetaminophen (Tylenol 325mg Tab) 650 mg PO Q4 PRN PRN Reason: Fever >100.4 F Clotrimazole (Lotrimin Af 1%) 1 applic TOP BID [facility] Last Admin: 01/09/17 08:48 Dose: 1 applic Vancomycin HCl 1 gm/ Sodium (Chloride) 250 mls @ 166.667 mls/hr IVPB Q12 JANNETH Last Admin: 01/09/17 08:50 Dose: 166.667 mls/hr Cefepime HCl 1 gm/ Sodium (Chloride) 100 mls @ 100 mls/hr IVPB Q12 JANNETH Last Admin: 01/09/17 08:50 Dose: 100 mls/hr Ketorolac Tromethamine (Toradol) 30 mg IVP Q6 PRN PRN Reason: Pain, moderate (4-7) Last Admin: 01/09/17 04:13 Dose: 30 mg Multivitamins/Minerals (Therapeutic-M Tab) 1 tab PO DAILY JANNETH Last Admin: 01/09/17 08:49 Dose: 1 tab Potassium Chloride (K-Dur 20 Meq Er Tab) 20 meq PO DAILY [facility] Last Admin: 01/09/17 08:48 Dose: 20 meq Sodium Hypochlorite (Dakins Solution 0.25%) 0 ml TOP DAILY [facility] Last Admin: 01/09/17 08:48 Dose: 1 applic - Labs Labs: 01/09/17 05:35 01/09/17 05:35 PT 12.0 SECONDS (9.6-11.2) H 01/04/17 16:25 INR 1.15 (0.92-1.08) H 01/04/17 16:25 APTT 33.1 SECONDS (23.3-32.5) H 01/04/17 16:25 <Miguel Shultza - Last Filed: 01/09/17 14:33> Subjective - Date & Time of Evaluation Date of Evaluation: 01/09/17 Time of Evaluation: 10:48 - Subjective Subjective: pt resting in bed, for dc today, for picc today, bw noted. k improved. no distress/complaints. phys therapy at bedside as well. case d/ cw/ ID for anbx plan. Objective - Vital Signs/Intake and Output Vital Signs (last 24 hours): Temp Pulse Resp BP Pulse Ox 98.2 F 82 18 148/85 99 01/09/17 08:28 01/09/17 08:28 01/09/17 08:28 01/09/17 08:28 01/09/17 08:28 - Medications Medications: Current Medications Acetaminophen (Tylenol 325mg Tab) 650 mg PO Q4 PRN PRN Reason: Fever >100.4 F Clotrimazole (Lotrimin Af 1%) 1 applic TOP BID [facility] Last Admin: 01/09/17 08:48 Dose: 1 applic Vancomycin HCl 1 gm/ Sodium (Chloride) 250 mls @ 166.667 mls/hr IVPB Q12 JANNETH Last Admin: 01/09/17 08:50 Dose: 166.667 mls/hr Cefepime HCl 1 gm/ Sodium (Chloride) 100 mls @ 100 mls/hr IVPB Q12 JANNETH Last Admin: 01/09/17 08:50 Dose: 100 mls/hr Ketorolac Tromethamine (Toradol) 30 mg IVP Q6 PRN PRN Reason: Pain, moderate (4-7) Last Admin: 01/09/17 04:13 Dose: 30 mg Multivitamins/Minerals (Therapeutic-M Tab) 1 tab PO DAILY [facility] Last Admin: 01/09/17 08:49 Dose: 1 tab Potassium Chloride (K-Dur 20 Meq Er Tab) 20 meq PO DAILY [facility] Last Admin: 01/09/17 08:48 Dose: 20 meq Sodium Hypochlorite (Dakins Solution 0.25%) 0 ml TOP DAILY [facility] Last Admin: 01/09/17 08:48 Dose: 1 applic - Labs Labs: 01/09/17 05:35 01/09/17 05:35 PT 12.0 SECONDS (9.6-11.2) H 01/04/17 16:25 INR 1.15 (0.92-1.08) H 01/04/17 16:25 APTT 33.1 SECONDS (23.3-32.5) H 01/04/17 16:25 - Constitutional Appears: Well, Non-toxic, No Acute Distress - Head Exam Head Exam: ATRAUMATIC, NORMAL INSPECTION, NORMOCEPHALIC - Eye Exam Eye Exam: EOMI, Normal appearance, PERRL Pupil Exam: NORMAL ACCOMODATION, PERRL - ENT Exam ENT Exam: Mucous Membranes Moist, Normal Exam - Neck Exam Neck Exam: Full ROM, Normal Inspection. absent: Lymphadenopathy - Respiratory Exam Respiratory Exam: Clear to Ausculation Bilateral, NORMAL BREATHING PATTERN - Cardiovascular Exam Cardiovascular Exam: REGULAR RHYTHM, RRR, +S1, +S2. absent: Murmur - GI/Abdominal Exam GI & Abdominal Exam: Soft, Normal Bowel Sounds. absent: Tenderness - Extremities Exam Extremities Exam: Full ROM, Normal Capillary Refill, Normal Inspection. absent : Joint Swelling, Pedal Edema Additional comments: dsg c/d/i, wound care by podiatry/wound rn - Back Exam Back Exam: NORMAL INSPECTION - Neurological Exam Neurological Exam: Abnormal Gait, Alert, Awake, CN II-XII Intact, Oriented x3 - Psychiatric Exam Psychiatric exam: Normal Affect, Normal Mood - Skin Skin Exam: Dry, Intact, Normal Color, Warm Assessment and Plan (1) DVT prophylaxis Status: Acute (2) C. difficile colitis Status: Acute (3) Cellulitis and abscess of buttock Status: Acute (4) Maggot infestation Status: Acute (5) Ulcers of both lower legs Status: Acute - Assessment and Plan (Free Text) Assessment: (1) DVT prophylaxis Assessment & Plan: scd and aehose, lovenox Status: Acute (2) C. difficile colitis Assessment & Plan: vnacom, cefepime, f/u repeat cdiff studies ID Status: Acute (3) Cellulitis and abscess of buttock Assessment & Plan: vnaco, defepime, id,wound care, ?? verónica Status: Acute (4) Maggot infestation Assessment & Plan: decon, will monitor, contact iso Status: Acute (5) Ulcers of both lower legs Assessment & Plan: vnaco, cefepime, id,wound care, ?? verónica podiatry Status: Acute
[2017-01-09] MEDS ORDERED: Lidocaine 1% Inj (20ml) ONE (12:02)
--- NOTE | 2017-01-09 12:12 | CP.PCM.PN ---
Subjective - Date & Time of Evaluation Date of Evaluation: 01/09/17 Time of Evaluation: 08:00 - Subjective Subjective: afeb less pain for PICC line Objective - Vital Signs/Intake and Output Vital Signs (last 24 hours): Temp Pulse Resp BP Pulse Ox 98.2 F 82 18 148/85 99 01/09/17 08:28 01/09/17 08:28 01/09/17 08:28 01/09/17 08:28 01/09/17 08:28 - Medications Medications: Current Medications Acetaminophen (Tylenol 325mg Tab) 650 mg PO Q4 PRN PRN Reason: Fever >100.4 F Clotrimazole (Lotrimin Af 1%) 1 applic TOP BID [facility] Last Admin: 01/09/17 08:48 Dose: 1 applic Vancomycin HCl 1 gm/ Sodium (Chloride) 250 mls @ 166.667 mls/hr IVPB Q12 JANNETH Last Admin: 01/09/17 08:50 Dose: 166.667 mls/hr Cefepime HCl 1 gm/ Sodium (Chloride) 100 mls @ 100 mls/hr IVPB Q12 JANNETH Last Admin: 01/09/17 08:50 Dose: 100 mls/hr Ketorolac Tromethamine (Toradol) 30 mg IVP Q6 PRN PRN Reason: Pain, moderate (4-7) Last Admin: 01/09/17 04:13 Dose: 30 mg Multivitamins/Minerals (Therapeutic-M Tab) 1 tab PO DAILY JANNETH Last Admin: 01/09/17 08:49 Dose: 1 tab Potassium Chloride (K-Dur 20 Meq Er Tab) 20 meq PO DAILY [facility] Last Admin: 01/09/17 08:48 Dose: 20 meq Sodium Hypochlorite (Dakins Solution 0.25%) 0 ml TOP DAILY [facility] Last Admin: 01/09/17 08:48 Dose: 1 applic - Labs Labs: 01/09/17 05:35 01/09/17 05:35 PT 12.0 SECONDS (9.6-11.2) H 01/04/17 16:25 INR 1.15 (0.92-1.08) H 01/04/17 16:25 APTT 33.1 SECONDS (23.3-32.5) H 01/04/17 16:25 - Constitutional Appears: Non-toxic, Cachectic, Chronically Ill - Head Exam Head Exam: NORMOCEPHALIC - Eye Exam Eye Exam: PERRL. absent: Scleral icterus - ENT Exam ENT Exam: Mucous Membranes Dry - Neck Exam Neck Exam: absent: Lymphadenopathy - Respiratory Exam Respiratory Exam: Decreased Breath Sounds, Rhonchi - Cardiovascular Exam Cardiovascular Exam: REGULAR RHYTHM, +S1, +S2 - GI/Abdominal Exam GI & Abdominal Exam: Distended, Soft. absent: Tenderness - Rectal Exam Rectal Exam: Deferred - Exam Exam: NORMAL INSPECTION - Extremities Exam Extremities Exam: absent: Pedal Edema - Back Exam Back Exam: absent: CVA tenderness (L), CVA tenderness (R) - Neurological Exam Neurological Exam: Alert, Awake, Oriented x3 Assessment and Plan (1) Cellulitis and abscess of buttock Status: Acute (2) Maggot infestation Status: Acute (3) Ulcers of both lower legs Status: Acute (4) Acute alcohol intoxication Status: Acute (5) Acute depression Status: Acute (6) Alcohol abuse Status: Acute (7) Alcohol abuse with intoxication Status: Acute (8) Alcohol dependence Status: Acute (9) Bilateral leg edema Status: Acute (10) Bilateral leg ulcer Status: Acute (11) Cellulitis Status: Acute (12) Chronic back pain Status: Acute - Assessment and Plan (Free Text) Assessment: cont wound care and iv rx at [facility]
--- NOTE | 2017-01-09 12:33 | PCM.SURG1 ---
Surgeon's Initial Post Op Note - Surgeon's Notes Surgeon: Paras Lakhani MD [place] Supervisor: NONE Type of Anesthesia: Local Pre-Operative Diagnosis: Foot infection Operative Findings: US showed a patent right basilic vein. Post-Operative Diagnosis: Foot infection Operation Performed: Single lumen picc placement right basilic vein. 32 cm. Tip in SVC. Specimen/Specimens Removed: None Estimated Blood Loss: EBL {In ML}: 2 Blood Products Given: N/A Drains Used: No Drains Post-Op Condition: Fair Date of Surgery/Procedure: 01/09/17 Time of Surgery/Procedure: 12:30
[2017-01-09 12:43] VITALS: BP 158/92; PULSE 89; TEMP 98.7; O2SAT 98
--- NOTE | 2017-01-09 15:07 | VASCULAR ---
PROCEDURE: Date of procedure: 01/09/2017 Procedure: 1. Placement of a right arm PICC with ultrasound and fluoroscopic guidance, CPT 88820 2. PICC tip confirmation with spot radiograph and is in the superior vena cava Medications: 1 percent lidocaine Total Fluoro time: 6.6 seconds Radiation: 0.53 mGy EBL: 2 cc HISTORY: Foot infection requiring long-term IV antibiotics TECHNIQUE: Following informed consent and procedure time-out, the patient was placed supine on the interventional table and the right arm prepped and draped in the usual sterile fashion. Ultrasound showed a patent and compressible right basilic vein. After the skin was anesthetized with lidocaine, the basilic vein was accessed with micro micropuncture technique using ultrasound guidance. A guidewire was then advanced under fluoroscopic guidance into the superior vena cava. An image documenting ultrasound guidance for vascular access was permanently saved. The length of the single-lumen 4 [place] PICC was trimmed to 32 centimeters and advanced through a peel-away sheath. The PICC was position with tip of PICC confirm a spot radiograph the superior vena cava. The PICC was secured to the patient's skin. The PICC was flushed. A biopatch and sterile dressing was applied. IMPRESSION: Placement of a single-lumen 4 Icelandic PICC trimmed to 32 centimeters via right basilic vein. The tip of the PICC is confirmed with spot radiograph and is in the superior vena cava.
--- NOTE | 2017-01-10 09:14 | PQF SEPSIS ---
This form is a permanent part of the medical record DR. MOLLY SCOTT: ER WORK-UP INITIATED FOR SEPSIS. COULD YOU PLEASE CLARIFY IF SEPSIS WAS RULED IN OR OUT POA. Clarification of your documentation is requested to better reflect the severity of illness and intensity of treatment of your patient. Indicators present [x] Temp < 96.8 or > 100.4 [x] WBC count > 12,000/mm3 or <000/mm3 or 10% immature neutrophils [x] Heart Rate > 90 [] Respiratory Rate > 20 [x] Fever or hypothermia [] Chills [] Positive blood cultures [] Hypotension [] Metabolic acidosis (Elevated lactate level, anion gap or reduced blood pH) [] Acute confusion /Altered Mental Status [] Shock [] Other: [] Location in the medical record that reflects the above clinical findings: [] Treatment Provided: [] PHYSICIAN'S RESPONSE Based on your medical judgment of the clinical indicators outlined above, are you treating this patient for a known or suspected: [x] Sepsis / Septicemia Please specify organism if known [] [] SIRS (Systemic Inflammatory Response Syndrome) [] Severe Sepsis (Sepsis with Associated Organ Dysfunction) [] Fever of Unknown Origin [] Other, please indicate: [] [] If Unable to Determine, please check the box, sign and date. Present On Admission (POA) Indicator: [x] Present at the time of admission [] Not present at the time of admission [] Clinically Undetermined In responding to this query, please exercise your independent professional judgment. The fact that a question is asked does not imply that any particular answer is desired or expected. Thank you for your clarification on this documentation. If you have any questions please call:[ ] * Thank you, * BETHANY PIRES [[phone] ][phone] administrative services officer JANINE
--- NOTE | 2017-01-10 13:19 | CP.PCM.DIS ---
Provider - Provider Date of Admission: 01/04/17 18:01 Attending physician: Chandrakant Snyder MD Time Spent in preparation of Discharge (in minutes): 15 Diagnosis - Discharge Diagnosis (1) DVT prophylaxis Status: Acute (2) C. difficile colitis Status: Acute (3) Cellulitis and abscess of buttock Status: Acute (4) Maggot infestation Status: Acute (5) Ulcers of both lower legs Status: Acute Hospital Course - Lab Results Lab Results: Micro Results 01/04/17 20:35 Leg - Left Wound Culture - Final Serratia Marcescens 01/05/17 14:40 Stool Stool Culture - Final NO SALMONELLA, SHIGELLA OR CAMPYLOBACTER ISOLATED. 01/05/17 14:40 Stool Ova and Parasite Concentrate Exam - Final 01/04/17 20:35 Leg - Right Gram Stain - Final 01/04/17 20:35 Leg - Right Wound Culture - Final Serratia Marcescens Klebsiella Oxytoca Most Recent Lab Values WBC 6.5 K/uL (4.8-10.8) 01/09/17 05:35 RBC 3.38 Mil/uL (4.40-5.90) L 01/09/17 05:35 Hgb 9.9 g/dL (12.0-18.0) L 01/09/17 05:35 Hct 30.6 % (35.0-51.0) L 01/09/17 05:35 MCV 90.6 fl (80.0-94.0) 01/09/17 05:35 MCH 29.3 pg (27.0-31.0) 01/09/17 05:35 MCHC 32.3 g/dL (33.0-37.0) L 01/09/17 05:35 RDW 16.4 % (11.5-14.5) H 01/09/17 05:35 Plt Count 443 K/uL (130-400) H 01/09/17 05:35 MPV 6.6 fl (7.2-11.7) L 01/08/17 09:00 Neut % (Auto) 65.1 % (50.0-75.0) 01/08/17 09:00 Lymph % (Auto) 16.2 % (20.0-40.0) L 01/08/17 09:00 [place] % (Auto) 16.1 % (0.0-10.0) H 01/08/17 09:00 Eos % (Auto) 1.8 % (0.0-4.0) 01/08/17 09:00 Baso % (Auto) 0.8 % (0.0-2.0) 01/08/17 09:00 Neut # 3.5 K/uL (1.8-7.0) 01/08/17 09:00 Lymph # 0.9 K/uL (1.0-4.3) L 01/08/17 09:00 [place] # 0.9 K/uL (0.0-0.8) H 01/08/17 09:00 Eos # 0.1 K/uL (0.0-0.7) 01/08/17 09:00 Baso # 0.0 K/uL (0.0-0.2) 01/08/17 09:00 Neutrophils % (Manual) 60 % (42-75) 01/07/17 06:30 Band Neutrophils % 2 % (0-2) 01/05/17 06:50 Lymphocytes % (Manual) 19 % (20-50) L 01/07/17 06:30 Monocytes % (Manual) 18 % (0-10) H 01/07/17 06:30 Eosinophils % (Manual) 2 % (0-7) 01/07/17 06:30 Basophils % (Manual) 1 % (0-2) 01/07/17 06:30 Platelet Estimate Normal (NORMAL) 01/07/17 06:30 Large Platelets Present 01/05/17 06:50 Hypochromasia (manual) Slight 01/05/17 06:50 Poikilocytosis (manual Slight 01/07/17 06:30 Anisocytosis (manual) Slight 01/07/17 06:30 Macrocytosis (manual) Slight 01/04/17 16:25 Ovalocytes Slight 01/07/17 06:30 Eliu Cells Slight 01/07/17 06:30 ESR 100 mm/hr (0-20) H 01/04/17 19:42 PT 12.0 SECONDS (9.6-11.2) H 01/04/17 16:25 INR 1.15 (0.92-1.08) H 01/04/17 16:25 APTT 33.1 SECONDS (23.3-32.5) H 01/04/17 16:25 pO2 43 mm/Hg (30-55) 01/04/17 19:40 VBG pH 7.47 (7.32-7.43) H 01/04/17 19:40 VBG pCO2 35 mmHg (40-60) L 01/04/17 19:40 VBG HCO3 26.2 mmol/L 01/04/17 19:40 VBG Total CO2 26.6 mmol/L (22-28) 01/04/17 19:40 VBG O2 Sat (Calc) 83.8 % (40-65) H 01/04/17 19:40 VBG Base Excess 2.1 mmol/L (0.0-2.0) H 01/04/17 19:40 VBG Potassium 9.5 mmol/L (3.6-5.2) H* 01/04/17 19:40 Sodium 125.0 mmol/L (132-148) L 01/04/17 19:40 Chloride 98.0 mmol/L (98-107) 01/04/17 19:40 Glucose 92 mg/dL (75-110) 01/04/17 19:40 Lactate 1.8 mmol/L (0.7-2.1) 01/04/17 19:40 FiO2 21.0 % 01/04/17 19:40 Crit Value Called To Dr leroy medellin 01/04/17 19:40 Crit Value Called By Rt 01/04/17 19:40 Crit Value Read Back Y 01/04/17 19:40 Blood Gas Notified Time 194401/04/17 19:40 Sodium 139 mmol/l (132-148) 01/09/17 05:35 Potassium 3.5 MMOL/L (3.6-5.0) L 01/09/17 05:35 Chloride 101 mmol/L (98-107) 01/09/17 05:35 Carbon Dioxide 27 mmol/L (22-30) 01/09/17 05:35 Anion Gap 15 (10-20) 01/09/17 05:35 BUN 6 mg/dl (9-20) L 01/09/17 05:35 Creatinine 0.6 mg/dL (0.8-1.5) L 01/09/17 05:35 Est GFR ( Amer) > 60 01/09/17 05:35 Est GFR (Non-Af Amer) > 60 01/09/17 05:35 Random Glucose 108 mg/dL (75-110) 01/09/17 05:35 Calcium 9.1 mg/dL (8.4-10.2) 01/09/17 05:35 Total Bilirubin 0.2 mg/dl (0.2-1.3) 01/08/17 05:25 AST 61 U/L (17-59) H 01/08/17 05:25 ALT 39 U/L (21-72) 01/08/17 05:25 Alkaline Phosphatase 75 U/L (38-126) 01/08/17 05:25 Total Creatine Kinase 1337 U/L (55-170) H 01/04/17 16:25 Troponin I < 0.0120 ng/mL (0.00-0.120) 01/04/17 16:25 Total Protein 6.6 G/DL (6.3-8.2) 01/08/17 05:25 Albumin 2.9 g/dL (3.5-5.0) L 01/08/17 05:25 Globulin 3.7 gm/dL (2.2-3.9) 01/08/17 05:25 Albumin/Globulin Ratio 0.8 (1.0-2.1) L 01/08/17 05:25 Venous Blood Potassium 9.5 mmol/L (3.6-5.2) H* 01/04/17 19:40 Urine Color Karen (YELLOW) 01/04/17 17:45 Urine Clarity Clear (Clear) 01/04/17 17:45 Urine pH 6.0 (5.0-8.0) 01/04/17 17:45 Ur Specific [place] 1.024 (1.003-1.030) 01/04/17 17:45 Urine Protein 100 mg/dL (NEGATIVE) 01/04/17 17:45 Urine Glucose (UA) Neg mg/dL (Normal) 01/04/17 17:45 Urine Ketones Trace mg/dL (NEGATIVE) 01/04/17 17:45 Urine Blood Moderate (NEGATIVE) 01/04/17 17:45 Urine Nitrate Negative (NEGATIVE) 01/04/17 17:45 Urine Bilirubin Negative (NEGATIVE) 01/04/17 17:45 Urine Urobilinogen 2.0 mg/dL (0.2-1.0) 01/04/17 17:45 Ur Leukocyte Esterase Neg Star/uL (Negative) 01/04/17 17:45 Urine RBC (Auto) 3 /hpf (0-3) 01/04/17 17:45 Urine Microscopic WBC 6 /hpf (0-5) H 01/04/17 17:45 Urine Bacteria Rare (<OCC) 01/04/17 17:45 Vancomycin Trough 9.5 ug/mL (5.0-10.0) 01/06/17 08:00 Urine Opiates Screen Negative (NEGATIVE) 01/04/17 17:45 Urine Methadone Screen Negative (NEGATIVE) 01/04/17 17:45 Ur Barbiturates Screen Negative (NEGATIVE) 01/04/17 17:45 Ur Phencyclidine Scrn Negative (NEGATIVE) 01/04/17 17:45 Ur Amphetamines Screen Negative (NEGATIVE) 01/04/17 17:45 U Benzodiazepines Scrn Negative (NEGATIVE) 01/04/17 17:45 U Oth Cocaine Metabols Negative (NEGATIVE) 01/04/17 17:45 U Cannabinoids Screen Negative (NEGATIVE) 01/04/17 17:45 Alcohol, Quantitative 67 mg/dl (0-10) H 01/04/17 16:25 C. difficile Ag & Toxin Positive antigen (NEGATIVE) 01/05/17 14:40 Discharge Exam - Head Exam Head Exam: ATRAUMATIC, NORMAL INSPECTION, NORMOCEPHALIC Discharge Plan - Discharge Medications Prescriptions: Acetaminophen 650 mg PO Q4H PRN #250 ml PRN Reason: Fever >100.4 F Cefepime 1gm in NS 100ml [Maxipime 1gm] 1 gm IVPB Q12 #28 bag Vancomycin/0.9 % Sod Chloride [Vanco 1 Gram/250 ml-0.9% NaCl] 1 gm IV Q12 #28 plast..bag - Follow Up Plan Condition: GUARDED Disposition: TRANSF TO SNF Instructions: Abscess (GEN) Additional Instructions: accepted to [facility] for wound car and anbx final dx- infected wounds, maggoted infested wounds f/u provider there, meds per med rec Referrals: Podiatry Clinic [Outside]
== END 2017-01-09 16:40 | DRG 872 ==
LOC: H.ER 13:02 → H.ERHOLD 18:01 → H.TEL 22:20
PROVIDERS: ADMIT Family Medicine; ATTEND Family Medicine
PROC: 02HV33Z Insertion of Infusion Device into Superior Vena Cava, Percutaneous Approach (ICD-10-PCS; principal; 2017-01-09)
PROC: B518ZZA Fluoroscopy of Superior Vena Cava, Guidance (ICD-10-PCS; 2017-01-09)
PROC: B548ZZA Ultrasonography of Superior Vena Cava, Guidance (ICD-10-PCS; 2017-01-09)
DX: A41.9 Sepsis, unspecified organism (principal); A04.7 Enterocolitis due to Clostridium difficile; B87.9 Myiasis, unspecified; I10 Essential (primary) hypertension; F10.229 Alcohol dependence with intoxication, unspecified; L03.115 Cellulitis of right lower limb; L03.317 Cellulitis of buttock; L97.919 Non-pressure chronic ulcer of unspecified part of right lower leg with unspecified severity; L97.929 Non-pressure chronic ulcer of unspecified part of left lower leg with unspecified severity; L03.116 Cellulitis of left lower limb; L02.31 Cutaneous abscess of buttock; J45.909 Unspecified asthma, uncomplicated; Z59.0 Homelessness; E78.00 Pure hypercholesterolemia, unspecified; G89.29 Other chronic pain; F32.9 Major depressive disorder, single episode, unspecified